=== PATIENT | male | born 1955 | race Caucasian/White ===

== ENCOUNTER 2018-01-06 11:32 | Day surgery (SDC) | payer MEDICARE ==
[~2018-01-06] VITALS: Ht 182.9 cm; Wt 89.0 kg
[~2018-01-06 11:32] MED LIST: DIAZ10 PO; IBUP800 PO; INDO50 PO; MULVITMIND PO; Norco 5-325 Ta1 EACH PO; OXYACE7.5T PO; OXYC10ER PO; OXYC5 PO
[2018-01-06] MEDS ORDERED: CELE400 (12:08)
[2018-01-06] MEDS ORDERED: Neurontin 300300 MG (12:08)
== END 2018-01-06 15:33 | disposition home or self-care (01) ==
LOC: ORSCSDS 11:32
PROVIDERS: Podiatrist Foot & Ankle Surgery
PROC: 0SGP04Z Fusion of Right Toe Phalangeal Joint with Internal Fixation Device, Open Approach (ICD-10-PCS; principal; 2018-01-06 13:00)
PROC: 0SQM0ZZ Repair Right Metatarsal-Phalangeal Joint, Open Approach (ICD-10-PCS; principal; 2018-01-06 13:00)
PROC: 0QSN04Z Reposition Right Metatarsal with Internal Fixation Device, Open Approach (ICD-10-PCS; principal; 2018-01-06 13:00)
DX: M20.41 Other hammer toe(s) (acquired), right foot (principal); M77.41 Metatarsalgia, right foot; J44.9 Chronic obstructive pulmonary disease, unspecified; Z87.891 Personal history of nicotine dependence; Z79.899 Other long term (current) drug therapy
CPT/HCPCS: C1713; J0690; J1100; J2405; J3010

== ENCOUNTER → 2018-09-09 | Outpatient (CLI) | payer MEDICARE ==
[~2018-09-09] MED LIST changes: +CELE200 PO; +CELE400; +Cyclobenzaprine5 MG PO; +Dazidox10 MG; +GABA600 PO; +Neurontin 300300 MG; +OXYC10TA19 PO
== END | disposition home or self-care (01) ==
LOC: LAB SHORT 18:05 → LAB 18:05
DX: Z51.81 Encounter for therapeutic drug level monitoring (principal); M21.932 Unspecified acquired deformity of left forearm; M19.079 Primary osteoarthritis, unspecified ankle and foot; F11.24 Opioid dependence with opioid-induced mood disorder; Z79.899 Other long term (current) drug therapy
CPT/HCPCS: G0480

== ENCOUNTER 2018-09-12 12:58 | Day surgery (SDC) | payer MEDICARE ==
[~2018-09-12] VITALS: Ht 182.9 cm; Wt 83.8 kg
--- NOTE | 2018-09-12 15:51 | NUR ---
09/12/18 1551 Brayden Acosta PT NOTED TO HAVE DRY, CRACKING SKIN ON THE BOTTOM OF HIS LEFT FOOT. NO SIGNS OF INFECTION NOTED.
--- NOTE | 2018-09-12 17:18 | NUR ---
09/12/18 1718 Bere Costello PT EAGER TO GO HOME, NO COMPLAINTS OF PAIN OR NAUSEA, DISCHARGE TEACHING DONE WITH NO QUESTIONS FROM PATIENT. ORSC.DFT HELPS THE PATIENT GET DRESSED.
== END 2018-09-12 17:21 | disposition home or self-care (01) ==
LOC: ORSCSDS 12:58
PROVIDERS: Podiatrist Foot & Ankle Surgery
PROC: 0QSP04Z Reposition Left Metatarsal with Internal Fixation Device, Open Approach (ICD-10-PCS; principal; 2018-09-12 14:45)
PROC: 0SGQ04Z Fusion of Left Toe Phalangeal Joint with Internal Fixation Device, Open Approach (ICD-10-PCS; principal; 2018-09-12 14:45)
DX: M77.42 Metatarsalgia, left foot (principal); M20.42 Other hammer toe(s) (acquired), left foot; Z87.891 Personal history of nicotine dependence; Z79.899 Other long term (current) drug therapy
CPT/HCPCS: C1713; C1769; J0690; J1100; J1885; J2250; J2405; J3010; J7120

== ENCOUNTER 2023-05-09 08:28 | Day surgery (SDC) | payer MEDICARE ==
[~2023-05-09] VITALS: Ht 182.9 cm; Wt 86.3 kg
[2023-05-09] MEDS ORDERED: NORVASC5 MG PO (09:35)
[2023-05-09 11:32] VITALS: BP 114/86
--- NOTE | 2023-05-09 15:38 | NUR ---
05/09/23 1538 Sandro Altamirano IV REMOVED INTACT. SITE WNL. PT MAINTAINED O2 SATURATION >92% IN SDU WITH GOOD PLETH WAVE. PULSE OXTMETRY OCCASSIONALLY SHOWED BREIF DROPS LOW 90%, HOWEVER, THIS ONLY OCCURRED WHEN PLETH WAVE WAS IRREGULA R. PT DENIED SIGNS AND SYMPTOMS OF HYPOXIA--INCLUDING DIZZINESS AND SHORTNESS OF BREATH--AND NONE WERE OBSERVED. PULSE OXYMETRY READING RETURNED TO >92% SPONTANEOUSLY. PT WAS CALM, TALKATIVE, AND JOKING UPON D/C. HE DENIED PAIN AND NAUSEA. HE SAID "I FEEL GREAT" REPEATEDLY AND EXPRESSED READINESS TO GO HOME. PT TAKES OXYCODONE AT HOME. PT WAS GIVEN INCENTIVE SPIROMETER AND INSTRUCTED IN ITS USE. DR. WRIGHT WAS CONSULTED REGARDING DILAUDID PERSCRIPTION AND PRIOR AT HOME OXYCODONE USE. PT WAS TOLD TO TAKE EITHER OXYCODONE OR DILAUDID FOR PAIN, BUT NOT BOTH, PER DR. WRIGHT'S INSTRUCTIONS. PT WAS ALSO TOLD HE COULD REMOVE COMPRESSION SOCKS TODAY, PER DR. WRIGHT'S INSTRUCTIONS. PT HAD LARGE LUMP ON HIS WRIST UPON ARRIVAL IN PACU AND AT TIME OF DISCHARGE. ADMITTING RN, FLORINDA, AND PT ADVISED THAT THE LUMP HAD BEEN PRESENT PRIOR TO ADMISSION AND HAD NOT CHANGED IN APPEARANCE.
== END 2023-05-09 12:44 | disposition home or self-care (01) ==
LOC: ORSCSDS 08:28
PROVIDERS: Orthopaedic Surgery
PROC: 01N40ZZ Release Ulnar Nerve, Open Approach (ICD-10-PCS; principal; 2023-05-09 09:30)
DX: G56.21 Lesion of ulnar nerve, right upper limb (principal); I10 Essential (primary) hypertension; E78.5 Hyperlipidemia, unspecified; E11.9 Type 2 diabetes mellitus without complications; F17.210 Nicotine dependence, cigarettes, uncomplicated; Z79.899 Other long term (current) drug therapy
CPT/HCPCS: 82947; J0690; J1100; J1170; J2250; J2405; J2704; J2795; J3010; J3370; J7120

== ENCOUNTER 2023-10-28 10:38 | Day surgery (SDC) | payer MEDICARE ==
[~2023-10-28] VITALS: Ht 182.9 cm; Wt 86.4 kg
[~2023-10-28 10:38] MED LIST changes: +Lactated Ringer's 1,000 ML IV ONE; +NORVASC5 MG PO
[2023-10-28] MEDS ORDERED: CeFAZolin Sodium 2,000 MG VIAL ONE (10:58)
[2023-10-28] MEDS ORDERED: NS 50 ML IV ONE (10:59)
[2023-10-28] MEDS ORDERED: Lactated Ringer's 1,000 ML IV ONE (11:28)
[2023-10-28] MEDS ORDERED: Lidocaine 2%-Epineph 1:200000 20 ML SDV ONE (11:45)
[2023-10-28] MEDS ORDERED: Midazolam HCl 1MG / ML 2ML Vial ONE ×2 (11:45→12:14)
--- NOTE | 2023-10-28 12:10 | NUR ---
10/28/23 1210 Leeann Mckoy TIME OUT PERFORMED AT 1156 AT BEDSIDE WITH MIGUEL CAMPOS AND DR FULTON PRESENT. PT PLACED ON 4L O2 VIA NC PER DR FULTON. PREOP AXILLARY NERVE BLOCK STARTED AT 1200 AND COMPLETED AT 1206. SPO2 AND BP MONITORED THROUGHOUT PROCEDURE. PATIENT TOLERATED PROCEDURE BLOCK.
[2023-10-28] MEDS ORDERED: propofoL 20 ML IV ONE (12:19)
[2023-10-28 12:49] VITALS: BP 135/85
== END 2023-10-28 13:25 | disposition home or self-care (01) ==
LOC: ORSCSDS 10:38
PROVIDERS: Orthopaedic Surgery
PROC: 0LN80ZZ Release Left Hand Tendon, Open Approach (ICD-10-PCS; principal; 2023-10-28 11:45)
PROC: 01N50ZZ Release Median Nerve, Open Approach (ICD-10-PCS; principal; 2023-10-28 11:45)
DX: G56.02 Carpal tunnel syndrome, left upper limb (principal); M65.342 Trigger finger, left ring finger; E11.9 Type 2 diabetes mellitus without complications; E78.5 Hyperlipidemia, unspecified; E55.9 Vitamin D deficiency, unspecified; I10 Essential (primary) hypertension; Z87.891 Personal history of nicotine dependence; Z79.899 Other long term (current) drug therapy
CPT/HCPCS: 82947; J0690; J2250; J2704; J7120

== ENCOUNTER 2024-01-11 14:14 | Emergency (ER) | payer MEDICARE ==
[~2024-01-11] VITALS: Ht 182.9 cm; Wt 86.2 kg
[~2024-01-11 14:14] MED LIST changes: -Lactated Ringer's 1,000 ML IV ONE
[2024-01-11 14:35] VITALS: BP 128/94
[2024-01-11] MEDS ORDERED: Ketorolac Tromethamine 15mg Vial IM ONE (18:30)
[2024-01-11] MEDS ORDERED: Cephalexin Monohydrate 500 MG Cap PO ONE (18:30)
[2024-01-11] MEDS ORDERED: OxyCODONE HCL 5 MG TAB PO ONE (18:30)
[2024-01-11] MEDS ORDERED: BACTRIM DS TAB1 EAC1 PO (18:50)
[2024-01-11] MEDS ORDERED: CEPH500 PO (18:50)
[2024-01-11] MEDS ORDERED: Trimethoprim/Sulfamethoxazole DS Tab PO ONE (18:50)
== END 2024-01-11 19:05 | disposition home or self-care (01) ==
LOC: ER 14:14
DX: L02.414 Cutaneous abscess of left upper limb (principal); L02.413 Cutaneous abscess of right upper limb; Z88.8 Allergy status to other drugs, medicaments and biological substances; Z79.899 Other long term (current) drug therapy; M10.9 Gout, unspecified; Z87.891 Personal history of nicotine dependence
CPT/HCPCS: 73080; 73630; A9270; J1885

== ENCOUNTER → 2024-06-25 | Outpatient (CLI) | payer MEDICARE ==
[~2024-06-25] MED LIST changes: +BACTRIM DS TAB1 EAC1 PO; +CEPH500 PO
[2024-06-30 10:11] LABS: HSV 1 SUBTYPE BY PCR Not Detected; HSV 2 SUBTYPE BY PCR Not Detected; HSV SUBTYPE SOURCE Not Provided
== END ==
LOC: LAB SHORT 17:32 → LAB 17:32
PROVIDERS: Physician Assistant
DX: T78.1XXA Other adverse food reactions, not elsewhere classified, initial encounter (principal); L03.211 Cellulitis of face
CPT/HCPCS: 87070; 87075; 87077; 87186; 87205; 87529

== ENCOUNTER → 2024-07-29 | Outpatient (CLI) | payer MEDICARE ==
[2024-07-29 15:57] LABS: Stool Occult Bld Immuno 1 Positive (NEGATIVE)
== END | disposition home or self-care (01) ==
LOC: LAB SHORT 14:02 → LAB 14:02
PROVIDERS: Family Medicine
DX: Z12.11 Encounter for screening for malignant neoplasm of colon (principal)
CPT/HCPCS: G0328

== ENCOUNTER 2025-02-06 16:52 | Inpatient (IN) | payer MEDICARE ==
[~2025-02-06] VITALS: Ht 182.9 cm; Wt 97.4 kg
[2025-02-06] MEDS ORDERED: Ipratropium/Albuterol SulF 2.5-0.5MG/3 ML Amp INH ONE (17:00)
[2025-02-06] MEDS ORDERED: NS 500 ML IV SCH ×2 (17:00→17:55)
[2025-02-06 17:28] LABS: pH Blood Venous 7.34 (7.34-7.37)
[2025-02-06] MEDS ORDERED: CefTRIAXone Sodium 1,000 MG in NS 100 ML IV ONE (17:40)
[2025-02-06 17:41] LABS: Hematocrit 34.8 % (37.0-53.0); Hemoglobin 12.7 g/dL (13.5-17.5); Mean Corpuscular HGB Conc 36.5 g/dL (31.5-36.5); Mean Corpuscular Volume 88 fL (80-100); NRBC ABSOLUTE 0.00 K/mm3 (0.00-0.02); NRBC Auto 0.0 /100 WBC (0.0-0.2); Platelet Count 334 K/mm3 (150-400); RDW Coefficient Variation 16.2 % (11.7-14.2); RDW Standard Deviation 52.0 fL (35.1-46.3)
[2025-02-06 17:52] LABS: BAND PERCENT MAN 2 % (0-8); BASOPHILS ABSOLUTE MAN 0.00 K/mm3 (0.00-0.23); BASOPHILS PERCENT MAN 0 % (0-2); EOSINOPHILS ABSOLUTE MAN 0.00 K/mm3 (0.00-0.68); EOSINOPHILS PERCENT MAN 0 % (0-6); LYMPHOCYTES ABSOLUTE MAN 0.48 K/mm3 (0.84-5.20); LYMPHOCYTES PERCENT MAN 1 % (21-46); MONOCYTES ABSOLUTE MAN 0.00 K/mm3 (0.16-1.47); MONOCYTES PERCENT MAN 0 % (4-13); NEUTROPHILS ABSOLUTE MAN 47.86 K/mm3 (1.96-9.15); SEG NEUTROPHILS PERCENT MAN 97 % (41-73)
[2025-02-06 18:13] LABS: Alanine Aminotransfer (ALT/SGP 81.0 U/L (12-78); Albumin, Blood 1.6 g/dL (3.4-5.0); Albumin/Globulin Ratio 0.3 (0.8-1.8); Anion Gap 11.0 mmol/L (3-11); Aspartate Aminotrans (AST/SGOT 116.0 U/L (12-37); Bilirubin, Total 3.0 mg/dL (0.1-1.0); Blood Urea Nitrogen 66.0 mg/dL (8-24); CO2, Blood 22.0 mmol/L (21-32); Calcium, Blood 8.2 mg/dL (8.5-10.1); Chloride, Blood 101.0 mmol/L (98-108); Creatinine, Blood 1.29 mg/dL (0.60-1.20); Globulin, Blood 5.2 g/dL (2.2-4.0); Glucose, Blood 210.0 mg/dL (70-99); Potassium, Blood 4.0 mmol/L (3.5-5.5); Sodium, Blood 130.0 mmol/L (136-145); Total Protein, Blood 6.8 g/dL (6.4-8.2)
[2025-02-06 18:26] LABS: Influenza A, PCR NEGATIVE (NEGATIVE); Influenza B, PCR NEGATIVE (NEGATIVE); Resp Syncytial Virus, PCR NEGATIVE (NEGATIVE); SARS-Cov-2 (COVID-19) PCR, MMC NEGATIVE (NEGATIVE)
[2025-02-06] MEDS ORDERED: Phenylephrine HCl 100 MCG/ML-NS 10MLSYR (1MG/10ML) IV ONE (18:53)
[2025-02-06] MEDS ORDERED: Vancomycin (Pharmacy Consult) IV SCH (19:05)
[2025-02-06] MEDS ORDERED: Ipratropium/Albuterol SulF 2.5-0.5MG/3 ML Amp INH SCH (19:10)
[2025-02-06] MEDS ORDERED: Magnesium Hydroxide Conc 10 ML UDC PO PRN (19:15)
[2025-02-06] MEDS ORDERED: NS 1,000 ML IV SCH ×2 (20:20→21:10)
[2025-02-06] MEDS ORDERED: Lactobacil 2-S.Thermo-Bifido 1 1 Cap PO SCH (21:00)
[2025-02-06] MEDS ORDERED: Insulin Regular 100 UNIT/ML 10ML Vial SC SCH (21:00)
[2025-02-06 21:24] VITALS: BP 101/68
[2025-02-07 00:11] VITALS: BP 95/63
[2025-02-07 03:49] VITALS: BP 114/80
--- NOTE | 2025-02-07 04:28 | NUR ---
SHIFT SUMMARY PT REMAINS A&OX4. SOFT BPs THROUGHOUT NIGHT HOWEVER ON THE UPRISE TOWARDS MORNING. ON TELE PT ST LOW 100s. PT ON 5L VIA NC. PT COUGHING FREQUENTLY WITH LARGE BROWN SPUTUM CAUSING PT TO BE IN QUITE A BIT OF PAIN. MEDICATED PER EMAR WITH 5MG OXYCODONE AND FLEXERIL. PT STILL HAVING PLEURITIC CP, RESIDENT NOTIFIED AND TESSLON PEARLS AND DEXAMETHASONE ORDERED AND GIVEN. PT VERY ANXIOUS IN ROOM, CONSTANT REMINDERS TO KEEP OXYGEN ON AND TO NOT PULL LINES. PT USING URINAL AT BEDSIDE. PT CONTINUES TO HAVE FLUIDS RUNNING WITH IV ABX GIVEN PER EMAR. NO FURTHER QUESTIONS OR CONCERNS AT THIS TIME. WILL CONTINUE WITH PLAN OF CARE.
[2025-02-07 05:21] LABS: Hematocrit 29.3 % (37.0-53.0); Hemoglobin 10.6 g/dL (13.5-17.5); Mean Corpuscular HGB Conc 36.2 g/dL (31.5-36.5); Mean Corpuscular Volume 88 fL (80-100); NRBC ABSOLUTE 0.00 K/mm3 (0.00-0.02); NRBC Auto 0.0 /100 WBC (0.0-0.2); Platelet Count 346 K/mm3 (150-400); RDW Coefficient Variation 16.3 % (11.7-14.2); RDW Standard Deviation 51.8 fL (35.1-46.3)
[2025-02-07 05:45] LABS: BAND PERCENT MAN 5 % (0-8); BASOPHILS ABSOLUTE MAN 0.00 K/mm3 (0.00-0.23); BASOPHILS PERCENT MAN 0 % (0-2); EOSINOPHILS ABSOLUTE MAN 0.00 K/mm3 (0.00-0.68); EOSINOPHILS PERCENT MAN 0 % (0-6); LYMPHOCYTES ABSOLUTE MAN 0.50 K/mm3 (0.84-5.20); LYMPHOCYTES PERCENT MAN 1 % (21-46); METAMYELOCYTE ABSOLUTE MAN 1.00 K/mm3 (0.00-0.00); METAMYELOCYTE PERCENT MAN 2 % (0-0); MONOCYTES ABSOLUTE MAN 2.01 K/mm3 (0.16-1.47); MONOCYTES PERCENT MAN 4 % (4-13); NEUTROPHILS ABSOLUTE MAN 46.76 K/mm3 (1.96-9.15); SEG NEUTROPHILS PERCENT MAN 88 % (41-73)
[2025-02-07 05:46] LABS: Alanine Aminotransfer (ALT/SGP 64.0 U/L (12-78); Albumin, Blood 1.5 g/dL (3.4-5.0); Albumin/Globulin Ratio 0.3 (0.8-1.8); Anion Gap 12.0 mmol/L (3-11); Aspartate Aminotrans (AST/SGOT 76.0 U/L (12-37); Bilirubin, Total 2.3 mg/dL (0.1-1.0); Blood Urea Nitrogen 57.0 mg/dL (8-24); CO2, Blood 20.0 mmol/L (21-32); Calcium, Blood 7.7 mg/dL (8.5-10.1); Chloride, Blood 107.0 mmol/L (98-108); Creatinine, Blood 1.04 mg/dL (0.60-1.20); Globulin, Blood 4.5 g/dL (2.2-4.0); Glucose, Blood 92.0 mg/dL (70-99); Magnesium, Blood 2.2 mg/dL (1.6-2.4); Potassium, Blood 4.3 mmol/L (3.5-5.5); Sodium, Blood 135.0 mmol/L (136-145); Total Protein, Blood 6.0 g/dL (6.4-8.2)
[2025-02-07] MEDS ORDERED: Dextromethorphan Polistirix 30 MG/5 ML 5ML Oral Syringe PO ONE (06:00)
[2025-02-07] MEDS ORDERED: Dextromethorphan Polistirix 30 MG/5 ML 5ML Oral Syringe PO PRN (06:00)
[2025-02-07 07:30] VITALS: BP 111/75
[2025-02-07] MEDS ORDERED: CefTRIAXone Sodium 2,000 MG in NS 100 ML IV SCH (09:00)
[2025-02-07] MEDS ORDERED: Enoxaparin 40 MG/0.4 ML SYR SC SCH (09:00)
[2025-02-07 12:51] VITALS: BP 135/71
--- NOTE | 2025-02-07 13:13 | NUR ---
PT HAD A COUGHING FIT AFTER HIS VISITORS LEFT AND HAD TROUBLE GETTING HIS SPO2 ABOVE 86%. SWITCHED PT TO HIGH FLOW NC AND HAD TO INCREASE OXYGEN FROM 4L UP TO 11L TO GET SPO2 AT 90%. PT THEN SAID HIS NOSE IS REALLY STUFFY, SO SWITCHED HIM TO AN OXYMASK AND IT IS CURRENTLY AT 10L WITH SPO2 91%. PT STATES HIS BREATHING IS MUCH EASIER WITH THE OXYMASK BECAUSE HE CAN BREATHE THROUGH HIS MOUTH. PT'S HR WENT UP TO THE 120/130S DURING THIS AND SWITCHED TO AFIB. WHEN PT WAS COUGHING MORE AND SATS WERE IN THE LWO 80S, HR WOULD HIT 140S. CURRENTLY 120S NOW THAT PT IS RESTING MORE. RT NOTIFIED OF THE INCREASE IN OXYGEN DEMANDS. DR. GUERRERO UPDATED WELL.
[2025-02-07] MEDS ORDERED: Guaifenesin/Dextromethorphan Syrup 5 ML UDC PO PRN (15:00)
[2025-02-07 17:06] VITALS: BP 123/78
--- NOTE | 2025-02-07 17:07 | NUR ---
SHIFT SUMMARY PT'S OXYGEN NEEDS INCREASED EARLY THIS AFTERNOON AND HE HAS BEEN ON 10L OXYMASK SINCE. HIS LUNGS REMAIN VERY COARSE, COUGHING UP MODERATE AMT OF THICK, BROWN SPUTUM. HE HAS REMAINED IN AFIB THIS AFTERNOON WITH RATE IN THE 120S. MAP HAS STAYED ABOVE 65. DIET ADVANCED PER DR. GUERRERO AND PT IS TOLERATING. VOIDING USING THE URINAL.
[2025-02-07] MEDS ORDERED: Metoprolol Tartrate 1 MG/ML 5 ML VIAL IV PRN (17:35)
[2025-02-07 20:00] VITALS: BP 126/72
[2025-02-08] VITALS: BP 112/88
[2025-02-08 03:42] LABS: Hematocrit 29.4 % (37.0-53.0); Hemoglobin 10.4 g/dL (13.5-17.5); Mean Corpuscular HGB Conc 35.4 g/dL (31.5-36.5); Mean Corpuscular Volume 89 fL (80-100); NRBC ABSOLUTE 0.00 K/mm3 (0.00-0.02); NRBC Auto 0.0 /100 WBC (0.0-0.2); Platelet Count 341 K/mm3 (150-400); RDW Coefficient Variation 16.8 % (11.7-14.2); RDW Standard Deviation 54.1 fL (35.1-46.3)
[2025-02-08 03:59] LABS: Alanine Aminotransfer (ALT/SGP 51.0 U/L (12-78); Albumin, Blood 1.3 g/dL (3.4-5.0); Albumin/Globulin Ratio 0.3 (0.8-1.8); Anion Gap 10.0 mmol/L (3-11); Aspartate Aminotrans (AST/SGOT 31.0 U/L (12-37); Bilirubin, Total 0.8 mg/dL (0.1-1.0); Blood Urea Nitrogen 59.0 mg/dL (8-24); CO2, Blood 21.0 mmol/L (21-32); Calcium, Blood 7.8 mg/dL (8.5-10.1); Chloride, Blood 109.0 mmol/L (98-108); Creatinine, Blood 0.96 mg/dL (0.60-1.20); Globulin, Blood 4.5 g/dL (2.2-4.0); Glucose, Blood 243.0 mg/dL (70-99); Potassium, Blood 4.2 mmol/L (3.5-5.5); Sodium, Blood 136.0 mmol/L (136-145); Total Protein, Blood 5.8 g/dL (6.4-8.2)
[2025-02-08 04:00] VITALS: BP 114/79
[2025-02-08 04:02] LABS: BAND PERCENT MAN 5 % (0-8); BASOPHILS ABSOLUTE MAN 0.00 K/mm3 (0.00-0.23); BASOPHILS PERCENT MAN 0 % (0-2); EOSINOPHILS ABSOLUTE MAN 0.00 K/mm3 (0.00-0.68); EOSINOPHILS PERCENT MAN 0 % (0-6); LYMPHOCYTES ABSOLUTE MAN 0.34 K/mm3 (0.84-5.20); LYMPHOCYTES PERCENT MAN 1 % (21-46); MONOCYTES ABSOLUTE MAN 0.34 K/mm3 (0.16-1.47); MONOCYTES PERCENT MAN 1 % (4-13); MYELOCYTE ABSOLUTE MAN 0.69 K/mm3 (0.00-0.00); MYELOCYTE PERCENT MAN 2 % (0-0); NEUTROPHILS ABSOLUTE MAN 33.46 K/mm3 (1.96-9.15); SEG NEUTROPHILS PERCENT MAN 91 % (41-73)
--- NOTE | 2025-02-08 05:38 | NUR ---
SHIFT SUMMARY PT HAS TOLERATED NIGHT WELL WITH NO SIGNIFICANT EVENTS OR CHANGES. PT IS ON OXIMASK AT 15LPM, SATS > 95%. PT TAKES MASK OFF AT SOME POINTS THROUGH NIGHT AND HAS SUSTAINED SATS > 90%, OCCASIONALLY DROPPING INTO THE 80s. PT IS ABLE TO MOVE IN BED INDEPENDENTLY AND USES URINAL ON HIS OWN. LUNG SOUNDS ARE DIM TO COARSE OR CRACKLES ON LEFT SIDE AND COARSE DIM ON RIGHT. PT IS CURRENTLY RESTING COMFORTABLY IN ROOM. CALL LIGHT WITHIN REACH. WILL CONTINUE TO MONITOR UNTIL REPORT PASSED TO DAY SHIFT TEAM.
[2025-02-08] MEDS ORDERED: Insulin Glargine-Yfgn 100 Unit/mL 3 ML SYR SC SCH (07:00)
[2025-02-08 07:14] VITALS: BP 111/82
[2025-02-08 12:53] VITALS: BP 114/72
--- NOTE | 2025-02-08 13:07 | NUR ---
REASSESSMENT PT HAS BEEN RESTING IN BED THROUGHOUT THE MORNING. HE SAYS HE FEELS STRONGER, BUT HE IS STILL REQUIRING 10L/OXYMASK OR 15L/HIGH FLOW NC WHEN HE IS EATING. HE CONTINUES TO COUGH UP BROWN/PINK SPUTUM. HE HAS BEEN USING THE FLUTTER VALVE THROUGHOUT THE MORNING. REMAINS IN AFIB WITH RATE IN THE 1TEENS. VOIDING USING THE URINAL. EATING ALL OF HIS MEALS.
[2025-02-08 16:06] VITALS: BP 106/84
--- NOTE | 2025-02-08 17:12 | NUR ---
SHIFT SUMMARY PT HAS CONTINUED TO REQUIRE 10L/OXYMASK TODAY TO KEEP SATS ABOVE 90%. LS REMAIN VERY COARSE ON THE L SIDE, MOSTLY CLEAR ON THE R. STILL COUGHING UP BROWN/PINK SPUTUM. AFIB WITH RATE IN THE 1TEENS, UP TO 120S WITH ACTIVITY OR COUGHING, MAP ABOVE 65. EATING 100% OF HIS MEALS. VODINIG USING THE URINAL. EDUCATION ON PT'S ILLNESS AND MEDICATIONS GIVEN THROUGHOUT THE DAY.
[2025-02-08 17:38] LABS: HEPATITIS A ANTIBODY, IGM Negative (Negative); HEPATITIS C AB CIA INTERP Negative (Negative); HEPATITIS C ANTIBODY CIA INDEX 0.05 IV
[2025-02-09] VITALS: BP 124/76
[2025-02-09 02:13] LABS: Hematocrit 29.3 % (37.0-53.0); Hemoglobin 10.4 g/dL (13.5-17.5); Mean Corpuscular HGB Conc 35.5 g/dL (31.5-36.5); Mean Corpuscular Volume 90 fL (80-100); NRBC ABSOLUTE 0.00 K/mm3 (0.00-0.02); NRBC Auto 0.0 /100 WBC (0.0-0.2); Platelet Count 356 K/mm3 (150-400); RDW Coefficient Variation 17.2 % (11.7-14.2); RDW Standard Deviation 55.6 fL (35.1-46.3)
[2025-02-09 02:38] LABS: BAND PERCENT MAN 5 % (0-8); BASOPHILS ABSOLUTE MAN 0.00 K/mm3 (0.00-0.23); BASOPHILS PERCENT MAN 0 % (0-2); EOSINOPHILS ABSOLUTE MAN 0.00 K/mm3 (0.00-0.68); EOSINOPHILS PERCENT MAN 0 % (0-6); LYMPHOCYTES ABSOLUTE MAN 1.60 K/mm3 (0.84-5.20); LYMPHOCYTES PERCENT MAN 7 % (21-46); METAMYELOCYTE ABSOLUTE MAN 1.83 K/mm3 (0.00-0.00); METAMYELOCYTE PERCENT MAN 8 % (0-0); MONOCYTES ABSOLUTE MAN 0.91 K/mm3 (0.16-1.47); MONOCYTES PERCENT MAN 4 % (4-13); MYELOCYTE ABSOLUTE MAN 0.91 K/mm3 (0.00-0.00); MYELOCYTE PERCENT MAN 4 % (0-0); NEUTROPHILS ABSOLUTE MAN 17.69 K/mm3 (1.96-9.15); SEG NEUTROPHILS PERCENT MAN 72 % (41-73)
[2025-02-09 02:43] LABS: Alanine Aminotransfer (ALT/SGP 103 U/L (12-78); Albumin, Blood 1.5 g/dL (3.4-5.0); Albumin/Globulin Ratio 0.3 (0.8-1.8); Anion Gap 9 mmol/L (3-11); Aspartate Aminotrans (AST/SGOT 75 U/L (12-37); Bilirubin, Total 0.6 mg/dL (0.1-1.0); Blood Urea Nitrogen 69 mg/dL (8-24); CO2, Blood 22 mmol/L (21-32); Calcium, Blood 7.9 mg/dL (8.5-10.1); Chloride, Blood 111 mmol/L (98-108); Creatinine, Blood 1.07 mg/dL (0.60-1.20); Globulin, Blood 4.3 g/dL (2.2-4.0); Glucose, Blood 203 mg/dL (70-99); Potassium, Blood 4.4 mmol/L (3.5-5.5); Sodium, Blood 138 mmol/L (136-145); Total Protein, Blood 5.8 g/dL (6.4-8.2); Vancomycin, Trough 11.4 ug/mL (5.0-10.0)
[2025-02-09 04:02] VITALS: BP 135/87
[2025-02-09] MEDS ORDERED: Ipratropium/Albuterol SulF 2.5-0.5MG/3 ML Amp INH PRN (04:55)
--- NOTE | 2025-02-09 05:47 | NUR ---
SHIFT SUMMARY PT HAS TOLERATED SHIFT OVERNIGHT WELL WITH NO SIGNIFICANT EVENTS. PT HAS BEEN ABLE TO SLEEP OVERNIGHT OCCASIONALLY WAKING TO COUGH. PT HAS RECIEVED MEDICATIONS PER MAR FOR PAIN AND SOB. PT IS ABLE TO COUGH UP SOME MATERIALS AND SPIT THEM INTO EMESIS BAG. PTS LUNG SOUNDS HAVE IMPROVED FROM THIS NURSES PREVIOUS SHIFT YESTERDAY. PT CURRENTLY ON 10L OXIMASK, SATS > 97%. CALL LIGHT WITHIN REACH. WILL CONTINUE TO MONITOR UNTIL REPORT PASSED TO DAY SHIFT TEAM.
[2025-02-09] MEDS ORDERED: Albuterol 2.5 MG/3 ML VIAL INH PRN (06:30)
[2025-02-09] MEDS ORDERED: Ipratropium/Albuterol SulF 2.5-0.5MG/3 ML Amp INH SCH (06:30)
[2025-02-09 07:15] VITALS: BP 135/102
--- NOTE | 2025-02-09 08:30 | NUR ---
NURSING ICU DAYSHIFT: Assumed care of pt at approx 0700. A/O, very pleasant, cooperative w/care. Denies any pain/discomfort at rest. General weakness noted though can perform most ADL's independently. Skin intact w/no breakdown reported. Cardiac monitoring in place, afib w/HR 100-120, SBP 135 prior to a.m. meds, no c/o CP/pressure, no noted edema. L/S w/crackles t/o (L>R), RR 20-24, O2 sat mid to upper 90's on 10L oxy mask, harsh cough producing small amts of clear/stringy sputum, dyspnea w/minimal exertion. Abd SNT, BT+, voiding w/o difficulty per pt. PIV x2, s/l w/abx as scheduled. Seen by physician team, nurse physician rounding completed, plan of care discussed, new d/o received. EKG completed w/results reported to attending. Pt denies any current needs or questions regarding plan of care. Call light in reach, cont to monitor for any changes.
[2025-02-09] MEDS ORDERED: Polyethylene Glycol 3350 17 gm PO PRN (10:20)
[2025-02-09 11:04] VITALS: BP 136/97
[2025-02-09 17:12] VITALS: BP 147/95
--- NOTE | 2025-02-09 17:15 | NUR ---
NURSING PCU DAYSHIFT SUMMARY: Pt continued to do well t/o shift. Started CPT w/RT which pt states has improved breathing greatly. Continue to encourage use of I/S and FV. Xfer to PCU unit via w/c at approx 1530. Pt oriented to unit and call system. Ecouraged patient to take shower and change clothes which pt refused at this time. Pt asked for L wrist to be wrapped for comfort d/t injury several years ago, aiden bandage applied per pt request. Remains in good spirits, continues to verbalize understanding of plan of care, denies any current questions/needs. Call light in reach, cont to monitor until rpt is given to NOC RN.
[2025-02-09] MEDS ORDERED: Enoxaparin 80 MG/0.8 ML SYR SC SCH (21:00)
[2025-02-09 23:43] VITALS: BP 131/93
[2025-02-10 03:50] VITALS: BP 140/94
[2025-02-10 04:37] LABS: Hematocrit 29.6 % (37.0-53.0); Hemoglobin 10.0 g/dL (13.5-17.5); Mean Corpuscular HGB Conc 33.8 g/dL (31.5-36.5); Mean Corpuscular Volume 91 fL (80-100); NRBC ABSOLUTE 0.00 K/mm3 (0.00-0.02); NRBC Auto 0.0 /100 WBC (0.0-0.2); Platelet Count 380 K/mm3 (150-400); RDW Coefficient Variation 17.5 % (11.7-14.2); RDW Standard Deviation 58.4 fL (35.1-46.3)
[2025-02-10 04:55] LABS: BAND PERCENT MAN 7 % (0-8); BASOPHILS ABSOLUTE MAN 0.00 K/mm3 (0.00-0.23); BASOPHILS PERCENT MAN 0 % (0-2); EOSINOPHILS ABSOLUTE MAN 0.00 K/mm3 (0.00-0.68); EOSINOPHILS PERCENT MAN 0 % (0-6); LYMPHOCYTES ABSOLUTE MAN 1.58 K/mm3 (0.84-5.20); LYMPHOCYTES PERCENT MAN 8 % (21-46); METAMYELOCYTE ABSOLUTE MAN 1.18 K/mm3 (0.00-0.00); METAMYELOCYTE PERCENT MAN 6 % (0-0); MONOCYTES ABSOLUTE MAN 0.79 K/mm3 (0.16-1.47); MONOCYTES PERCENT MAN 4 % (4-13); MYELOCYTE ABSOLUTE MAN 0.19 K/mm3 (0.00-0.00); MYELOCYTE PERCENT MAN 1 % (0-0); NEUTROPHILS ABSOLUTE MAN 16.05 K/mm3 (1.96-9.15); SEG NEUTROPHILS PERCENT MAN 74 % (41-73)
[2025-02-10 05:00] LABS: Alanine Aminotransfer (ALT/SGP 167.0 U/L (12-78); Albumin, Blood 1.6 g/dL (3.4-5.0); Albumin/Globulin Ratio 0.4 (0.8-1.8); Anion Gap 9.0 mmol/L (3-11); Aspartate Aminotrans (AST/SGOT 66.0 U/L (12-37); Bilirubin, Total 0.7 mg/dL (0.1-1.0); Blood Urea Nitrogen 50.0 mg/dL (8-24); CO2, Blood 25.0 mmol/L (21-32); Calcium, Blood 7.8 mg/dL (8.5-10.1); Chloride, Blood 110.0 mmol/L (98-108); Creatinine, Blood 0.82 mg/dL (0.60-1.20); Globulin, Blood 4.4 g/dL (2.2-4.0); Glucose, Blood 155.0 mg/dL (70-99); Potassium, Blood 4.4 mmol/L (3.5-5.5); Sodium, Blood 140.0 mmol/L (136-145); Total Protein, Blood 6.0 g/dL (6.4-8.2)
--- NOTE | 2025-02-10 05:22 | NUR ---
SHIFT SUMMARY PT ALERT AND ORIENTED X 4. PT ON 8-12L VIA OXYMIZER MASK. PT HAD COUGHING EPISODE PRODUCED MUCOUSY SPUTUM. BREATHING TREATMENT AND ROBITUSSIN GIVEN WITH SOB IMPROVED. PT IN AFIB WITH HR 100S-110S AND UP TO 120S WITH ACTIVITY. PT DENIES CP/PRESSURE. BP STABLE. PT WITH CRACKLES T/O LUNGS. PT DENIES PAIN. PT PERFOMRED IS AND FLUTTER VALVE. PT WITH ADEQUATE URINE OUTPUT. PT ABLE TO MAKE NEEDS KNOWN.
[2025-02-10 08:18] VITALS: BP 139/76
[2025-02-10] MEDS ORDERED: NS 250 ML IV PRN (08:50)
[2025-02-10 11:50] VITALS: BP 147/105
[2025-02-10] MEDS ORDERED: Insulin Human Lispro 100 Units/ML 3ML Syringe SC SCH (16:30)
[2025-02-10 17:27] VITALS: BP 134/83
--- NOTE | 2025-02-10 18:08 | NUR ---
End of shift note. Pt reports that he is very fatigued today but does report that his breathing seems to be better today. Pt has tolerated oxymask 7L which has been keeping sats >92%. HR remains in the low 100s, new orders given to start today. Pt is able to make needs known. Call light is within reach.
[2025-02-10 20:05] VITALS: BP 121/73
[2025-02-10 23:06] VITALS: BP 138/79
[2025-02-11 03:27] VITALS: BP 144/95
[2025-02-11 04:02] LABS: Hematocrit 28.9 % (37.0-53.0); Hemoglobin 9.8 g/dL (13.5-17.5); Mean Corpuscular HGB Conc 33.9 g/dL (31.5-36.5); Mean Corpuscular Volume 90 fL (80-100); NRBC ABSOLUTE 0.00 K/mm3 (0.00-0.02); NRBC Auto 0.0 /100 WBC (0.0-0.2); Platelet Count 423 K/mm3 (150-400); RDW Coefficient Variation 16.9 % (11.7-14.2); RDW Standard Deviation 56.0 fL (35.1-46.3)
[2025-02-11 04:29] LABS: Alanine Aminotransfer (ALT/SGP 140.0 U/L (12-78); Albumin, Blood 1.6 g/dL (3.4-5.0); Albumin/Globulin Ratio 0.4 (0.8-1.8); Anion Gap 7.0 mmol/L (3-11); Aspartate Aminotrans (AST/SGOT 41.0 U/L (12-37); Bilirubin, Total 0.6 mg/dL (0.1-1.0); Blood Urea Nitrogen 37.0 mg/dL (8-24); CO2, Blood 26.0 mmol/L (21-32); Calcium, Blood 7.5 mg/dL (8.5-10.1); Chloride, Blood 109.0 mmol/L (98-108); Creatinine, Blood 0.7 mg/dL (0.60-1.20); Globulin, Blood 3.9 g/dL (2.2-4.0); Glucose, Blood 122.0 mg/dL (70-99); Potassium, Blood 3.9 mmol/L (3.5-5.5); Sodium, Blood 138.0 mmol/L (136-145); Total Protein, Blood 5.5 g/dL (6.4-8.2)
[2025-02-11 04:53] LABS: BAND PERCENT MAN 4 % (0-8); BASOPHILS ABSOLUTE MAN 0.00 K/mm3 (0.00-0.23); BASOPHILS PERCENT MAN 0 % (0-2); EOSINOPHILS ABSOLUTE MAN 0.00 K/mm3 (0.00-0.68); EOSINOPHILS PERCENT MAN 0 % (0-6); LYMPHOCYTES ABSOLUTE MAN 0.64 K/mm3 (0.84-5.20); LYMPHOCYTES PERCENT MAN 3 % (21-46); METAMYELOCYTE ABSOLUTE MAN 1.07 K/mm3 (0.00-0.00); METAMYELOCYTE PERCENT MAN 5 % (0-0); MONOCYTES ABSOLUTE MAN 0.64 K/mm3 (0.16-1.47); MONOCYTES PERCENT MAN 3 % (4-13); MYELOCYTE ABSOLUTE MAN 0.86 K/mm3 (0.00-0.00); MYELOCYTE PERCENT MAN 4 % (0-0); NEUTROPHILS ABSOLUTE MAN 18.34 K/mm3 (1.96-9.15); SEG NEUTROPHILS PERCENT MAN 81 % (41-73)
--- NOTE | 2025-02-11 05:23 | NUR ---
SHIFT SUMMARY PT ALERT AND ORIENTED X 4. PT WITH CRACKLES T/O WITH L>R. PT WITH COUGHING FIT WHEN LAYING DOWN FLAT. PRN ROBITUSSIN AND BREATHING TREATMENT GIVEN. INCREASED OXYGEN TO 15L FOR SOB AND DESATS TO 85%. PT'S BREATHING IMPROVED AFTER SLEEPING WITH HOB ELEVATED. PT CURRENTLY ON 7L VIA OXYMIZER MASK. PT IN AFIB WITH HR 90S-100S. SHOWINNG IMPROVEMENT AFTER STARTING PO METROPROLOL. PT DENIES CP/PRESSURE. OXYCODONE GIVEN X 1 FOR GENERALIZED PAIN. ADEQUATE URINE OUTPUT. CALL GARRIDO WITHIN REACH AND PT ABLE TO MAKE NEEDS KNOWN.
[2025-02-11 07:28] VITALS: BP 141/88
[2025-02-11] MEDS ORDERED: Insulin Human Lispro 100 Units/ML 3ML Syringe SC SCH (07:30)
[2025-02-11 11:35] VITALS: BP 142/92
--- NOTE | 2025-02-11 13:25 | NUR ---
UPDATE PT REQUIRED 15L OXYMIZER WHILE TALKING WITH RESIDENT MD'S THIS MORNING, WAS ABLE TO TITRATE PT TO 8L OXYMIZER FOR BRIEF PERIOD. PT SEEN BY HOPSITALIST AND REQUIRING 13L OXYMIZER. INSTRUCTED THIS RN TO ATTEMPT TO TITRATE DOWJN TOLERATED AND TO NOTIFY THE MD IF PT O2 DEMANDS INCREASE. AROUND 1200, PT ABLE TO BE TITRATED TO 10LOXYMIZER. ROUGHLY 1300, PT REQUESTED TO AMBULATE TO RESTROOM. PT REPORTED SOB DURING AMBULATION AND OXYMIZER TURNED UP TO 13L AGAIN. RESPIRATORY THERAPIST TO PT ROOM ATY ROUGHLY 1315 AND PLACED PT ON AIRVO 50L 80%. FIO2 TITRATED TO 70% AFTER PT SATS REACHED HIGH 90'S. MD NOTIFIED OF INCREASED O2 DEMANDS.
[2025-02-11 15:57] VITALS: BP 125/89
--- NOTE | 2025-02-11 16:43 | NUR ---
Pt states that his pain is much better now, and he is tolerating the airVo humidified hi flow oxygen.
--- NOTE | 2025-02-11 17:40 | NUR ---
SHIFT SUMMARY PT A/OX4 AND COOPERATIVE OF CARE. PT ABLE TO EXPRESS NEEDS AND CALLS APPROPIATE. PT INDEPENDENT IN BED AND 1 PER ASSIST WHEN UP IN ROOM FOR INCREASED O2 DEMANDS. PT WAS ON 7L OXYMIZER THIS MORNING AND WAS TRANSFERING TO 10L HFNC WHEN EATING. PT O2 DEMANDS INCREASED THROUGHOUT DAY, PT CURRENTLY ON AIRVO 50L 70%. PT REPORTS FEELING BETTER AFTER SWITCHING TO AIRVO. PT REMAINED AFIB WITH CONTROLED RATE. OTHER VSS THROUGHOUT SHIFT. NO REPORT OF CHEST PAIN/PRESSURE. SOB REPORTED WITH AMBULATION THAT LEAD TO SWITCHING TO AIRVO. PT WORKED MINIMALLY WITH PHYSICAL THERAPY, SEE THERAPIST NOTES. PT USING INCENTIVE SPIROMETER AND FLUTTER FALVE DURING SHIFT, PT ENCOURAGED TO INCREASE USE.
[2025-02-11 19:59] VITALS: BP 107/80
[2025-02-11 23:33] VITALS: BP 122/71
[2025-02-12 03:45] VITALS: BP 134/90
--- NOTE | 2025-02-12 04:24 | NUR ---
SHIFT SUMMARY PT A&OX4, ABLE TO MAKE NEEDS KNOWN. SP02>90% ON AIRVO 50L TITRATED TO 60% FI02. THIS AM, PT C/O HE COULDNT BREATHE WITH AIRVO AND WANTED OFF. TRIALED ON OXYMASK 15L. SATS MID TO HIGH 80'S. PT COUGHED UP BROWN SPUTUM. REPLACED BACK ON AIRVO. TELEMETRY SHOWS AFIB, HR 90'S-110'S. C/O OF WRIST PAIN, MEDICATED FOR PAIN AND RLS PER EMAR. USED URINAL TO VOID, NO BM THIS SHIFT. REPOSITIONED SELF IN BED. CURRENTLY IN ROOM WATCHING TV, CALL LIGHT IN REACH.
[2025-02-12 04:47] LABS: Hematocrit 27.1 % (37.0-53.0); Hemoglobin 9.2 g/dL (13.5-17.5); Mean Corpuscular HGB Conc 33.9 g/dL (31.5-36.5); Mean Corpuscular Volume 92 fL (80-100); NRBC ABSOLUTE 0.00 K/mm3 (0.00-0.02); NRBC Auto 0.0 /100 WBC (0.0-0.2); Platelet Count 485 K/mm3 (150-400); RDW Coefficient Variation 16.8 % (11.7-14.2); RDW Standard Deviation 56.3 fL (35.1-46.3)
[2025-02-12 05:04] LABS: Alanine Aminotransfer (ALT/SGP 97.0 U/L (12-78); Albumin, Blood 1.5 g/dL (3.4-5.0); Albumin/Globulin Ratio 0.4 (0.8-1.8); Anion Gap 8.0 mmol/L (3-11); Aspartate Aminotrans (AST/SGOT 25.0 U/L (12-37); Bilirubin, Total 0.5 mg/dL (0.1-1.0); Blood Urea Nitrogen 39.0 mg/dL (8-24); CO2, Blood 26.0 mmol/L (21-32); Calcium, Blood 7.4 mg/dL (8.5-10.1); Chloride, Blood 108.0 mmol/L (98-108); Creatinine, Blood 0.64 mg/dL (0.60-1.20); Globulin, Blood 3.7 g/dL (2.2-4.0); Glucose, Blood 91.0 mg/dL (70-99); Potassium, Blood 4.0 mmol/L (3.5-5.5); Sodium, Blood 138.0 mmol/L (136-145); Total Protein, Blood 5.2 g/dL (6.4-8.2)
[2025-02-12 05:14] LABS: BAND PERCENT MAN 5 % (0-8); BASOPHILS ABSOLUTE MAN 0.00 K/mm3 (0.00-0.23); BASOPHILS PERCENT MAN 0 % (0-2); EOSINOPHILS ABSOLUTE MAN 0.00 K/mm3 (0.00-0.68); EOSINOPHILS PERCENT MAN 0 % (0-6); LYMPHOCYTES ABSOLUTE MAN 1.42 K/mm3 (0.84-5.20); LYMPHOCYTES PERCENT MAN 6 % (21-46); MONOCYTES ABSOLUTE MAN 0.71 K/mm3 (0.16-1.47); MONOCYTES PERCENT MAN 3 % (4-13); MYELOCYTE ABSOLUTE MAN 0.71 K/mm3 (0.00-0.00); MYELOCYTE PERCENT MAN 3 % (0-0); NEUTROPHILS ABSOLUTE MAN 20.90 K/mm3 (1.96-9.15); SEG NEUTROPHILS PERCENT MAN 83 % (41-73)
[2025-02-12 07:33] VITALS: BP 123/89
[2025-02-12 07:46] LABS: HIV 1,2 COMBO ANTIGEN/ANTIBODY Negative (Negative)
[2025-02-12 09:41] LABS: pH Blood Venous 7.50 (7.34-7.37)
[2025-02-12 11:21] VITALS: BP 118/95
[2025-02-12] MEDS ORDERED: Insulin Human Lispro 100 Units/ML 3ML Syringe SC SCH (11:30)
[2025-02-12] MEDS ORDERED: Ipratropium/Albuterol SulF 2.5-0.5MG/3 ML Amp INH SCH (16:05)
[2025-02-12] MEDS ORDERED: Albuterol 2.5 MG/3 ML VIAL INH PRN (16:05)
[2025-02-12 16:35] VITALS: BP 125/83
--- NOTE | 2025-02-12 17:38 | NUR ---
SHIFT SUMMARY PT A/OX4 AND COOPERATIVE OF CARE. PT ABLE TO EXPRESS NEEDS AND CALLS APPROPIATE. PT O2 DEMANDS LABILE FIRST HALF OF THIS SHIFT WITH NEEDING TO MAX OUT AIRVO FOR BRIEF PERIOD. PT O2 DEMANDS IMPROVING SECOND HALF OF SHIFT, ABLE TO TITRATE AIRVO TO 45L 45% SATS IN THE 90'S. PT REPORTED SOB AT TIMES WHEN AMBULATING FROM BED TO CHAIR OR COMMODE. HR REMAINED AFIB WITH CONTROLED RATES 90-100'S. NO REPORT OF CHEST PAIN/PRESSURE. OTHER VSS. NATURAL RESOURCES TECHNICIAN CONSULTED AND SEEN BY PT THIS SHIFT, SEE PULM NOTES. PT WITH MORE PRODUCTIVE COUGH THIS SHIFT AFTER RECIEVING CPT FROM RESPIRATORY THERAPIST.
[2025-02-12] MEDS ORDERED: DEXTROMETHORPHAN/BENZOCAINE 1 EACH LOZENGE MT PRN (18:45)
[2025-02-12 19:43] VITALS: BP 130/74
[2025-02-12 23:36] VITALS: BP 119/91
[2025-02-13 04:04] LABS: Hematocrit 24.1 % (37.0-53.0); Hemoglobin 8.3 g/dL (13.5-17.5); Mean Corpuscular HGB Conc 34.4 g/dL (31.5-36.5); Mean Corpuscular Volume 93 fL (80-100); NRBC ABSOLUTE 0.00 K/mm3 (0.00-0.02); NRBC Auto 0.0 /100 WBC (0.0-0.2); Platelet Count 511 K/mm3 (150-400); RDW Coefficient Variation 16.7 % (11.7-14.2); RDW Standard Deviation 55.5 fL (35.1-46.3)
[2025-02-13 04:05] VITALS: BP 126/91
[2025-02-13 04:27] LABS: Alanine Aminotransfer (ALT/SGP 97.0 U/L (12-78); Albumin, Blood 1.5 g/dL (3.4-5.0); Albumin/Globulin Ratio 0.4 (0.8-1.8); Anion Gap 8.0 mmol/L (3-11); Aspartate Aminotrans (AST/SGOT 35.0 U/L (12-37); Bilirubin, Total 0.4 mg/dL (0.1-1.0); Blood Urea Nitrogen 42.0 mg/dL (8-24); CO2, Blood 27.0 mmol/L (21-32); Calcium, Blood 7.0 mg/dL (8.5-10.1); Chloride, Blood 109.0 mmol/L (98-108); Creatinine, Blood 0.63 mg/dL (0.60-1.20); Globulin, Blood 3.5 g/dL (2.2-4.0); Glucose, Blood 117.0 mg/dL (70-99); Potassium, Blood 3.5 mmol/L (3.5-5.5); Sodium, Blood 140.0 mmol/L (136-145); Total Protein, Blood 5.0 g/dL (6.4-8.2)
[2025-02-13 04:33] LABS: BAND PERCENT MAN 8 % (0-8); BASOPHILS ABSOLUTE MAN 0.23 K/mm3 (0.00-0.23); BASOPHILS PERCENT MAN 1 % (0-2); EOSINOPHILS ABSOLUTE MAN 0.00 K/mm3 (0.00-0.68); EOSINOPHILS PERCENT MAN 0 % (0-6); LYMPHOCYTES ABSOLUTE MAN 1.63 K/mm3 (0.84-5.20); LYMPHOCYTES PERCENT MAN 7 % (21-46); METAMYELOCYTE ABSOLUTE MAN 0.46 K/mm3 (0.00-0.00); METAMYELOCYTE PERCENT MAN 2 % (0-0); MONOCYTES ABSOLUTE MAN 0.46 K/mm3 (0.16-1.47); MONOCYTES PERCENT MAN 2 % (4-13); MYELOCYTE ABSOLUTE MAN 0.23 K/mm3 (0.00-0.00); MYELOCYTE PERCENT MAN 1 % (0-0); NEUTROPHILS ABSOLUTE MAN 20.26 K/mm3 (1.96-9.15); SEG NEUTROPHILS PERCENT MAN 79 % (41-73)
--- NOTE | 2025-02-13 05:17 | NUR ---
END OF SHIFT REPORT PT IN AFIB OVERNIGHT WITH HEART RATE IN 90-110'S. PT GIVEN FLEXERIL AT HS FOR RESTLESS LEGS AND OXY PRN FOR GENERALIZED BONE PAIN. SATS MAINTAINED W CURRENT RT SETTINGS OF 45L AND 455 fio2 on high flow nc. CEPACOL PRN ADMINISTERED FOR THROAT DISCOMFORT. PT HAD SNACK, WATCHED TV AND VISITED W STAFF. IN AM, PT HAD C/O NECK PAIN. WARM PACK MACHINE BROUGHT AND PRN OXYCODONE GIVEN. AM LABS DRAWN AND PLAN FOR PULMONARY TO SEE PT TODAY. PT AT START OF SHIFT USED IS TO 1750, LATER IN SHIFT 1000. PT BRINGING UP THICK [place] SPUTUM AND ENCOURAGED TO CONTINUE IS AND FLUTTER.
[2025-02-13 08:40] VITALS: BP 109/72
[2025-02-13 11:27] VITALS: BP 111/68
[2025-02-13 15:48] VITALS: BP 109/77
[2025-02-13 16:13] LABS: Hematocrit 26.5 % (37.0-53.0); Hemoglobin 8.7 g/dL (13.5-17.5)
[2025-02-13] MEDS ORDERED: Pantoprazole Sodium 40 MG Injection IV SCH (16:30)
--- NOTE | 2025-02-13 17:30 | NUR ---
SHIFT SUMMARY PT A&Ox4, CALLS AND COMMUNICATES NEEDS APPROPRIATELY. BP STABLE, AFIB 100's, UP TO 120's WHEN DESATURATING. DENIES CP/PRESSURE. THROUGHOUT SHIFT, TITRATED O2 FROM 40L 45% FiO2 VIA AIRVO TO 4-6L VIA NC. REPORTS INTERMEDIATE SOB. VERY PRODUCTIVE COUGH. C/O SORE NECK THAT STARTED PREVIOUS SHIFT AND CHRONIC PAIN, MANAGED PER EMAR. 1 ASSIST TO CHAIR/BSC, CONTINENT OF URINE AND BOWEL. PT WITH BLACK STOOL, PHYSICIAN NOTIFIED, SAMPLE SENT. NO OTHER EVENTS, WILL REPORT TO ONCOMING RN.
[2025-02-13 20:41] VITALS: BP 108/79
[2025-02-13 22:21] LABS: Hematocrit 23.5 % (37.0-53.0); Hemoglobin 8.0 g/dL (13.5-17.5)
[2025-02-14] VITALS (18 sets, daily range): BP systolic 87–127; BP diastolic 60–92
[2025-02-14 04:15] LABS: Hematocrit 23.2 % (37.0-53.0); Hemoglobin 7.8 g/dL (13.5-17.5)
[2025-02-14 04:53] LABS: Alanine Aminotransfer (ALT/SGP 91.0 U/L (12-78); Albumin, Blood 1.6 g/dL (3.4-5.0); Albumin/Globulin Ratio 0.4 (0.8-1.8); Anion Gap 9.0 mmol/L (3-11); Aspartate Aminotrans (AST/SGOT 29.0 U/L (12-37); Bilirubin, Total 0.4 mg/dL (0.1-1.0); Blood Urea Nitrogen 35.0 mg/dL (8-24); CO2, Blood 26.0 mmol/L (21-32); Calcium, Blood 7.1 mg/dL (8.5-10.1); Chloride, Blood 108.0 mmol/L (98-108); Creatinine, Blood 0.61 mg/dL (0.60-1.20); Globulin, Blood 3.6 g/dL (2.2-4.0); Glucose, Blood 176.0 mg/dL (70-99); Potassium, Blood 3.4 mmol/L (3.5-5.5); Sodium, Blood 140.0 mmol/L (136-145); Total Protein, Blood 5.2 g/dL (6.4-8.2)
--- NOTE | 2025-02-14 05:16 | NUR ---
END OF SHIFT REPORT PT VISITED W PARENTS AT START OF SHIFT. DIET CHANGED FROM NPO TO CLEARS. PT HAD JELLO AND CHICKEN BROTH AND CLEAR ENSURES. BLOOD SUGARS TAKEN Q 6 HOURS. NO BM THIS SHIFT. HGB/HCT DRAWN Q 6 HOURS. AM LEVEL OF 7.8/23.[address] LIAO. PT ON BID PPI W IV PROTONIX. PT GIVEN PRN OXYCODONE AND FLEXERIL TIMES ONE EACH OVERNIGHT FOR BONE PAIN AND RESTLESS LEGS. PT IN AFIB CONTROLLED TO RVR WITH HEART RATE IN 80-110'S. RT TITRATING DOWN AND UP PT O2 REQ. PT STARTED ON 4 LITERS BUBLED NC AND UP TO 6 LITERS BEFORE HS. WHILE PT SLEEPING, PT REQUIRED OXIMYZER MASK FOR DESATTING W SNORING AND RESPIRATORY PERIODS OF IRREGULAR RESPIRATIONS. PT RETURNED TO 7 LITERS NASAL CANULA TO HAVE JELLO AND RETURNING BACK TO SLEEP.
[2025-02-14 07:51] LABS: Stool Occult Blood Guaiac 1 Pos (Neg)
[2025-02-14 08:38] LABS: Ferritin, Serum 399.0 ng/mL (26-388); Total Iron Binding Capacity 258.0 ug/dL (250-450)
[2025-02-14] MEDS ORDERED: Insulin Glargine-Yfgn 100 Unit/mL 3 ML SYR SC ONE (09:25)
--- NOTE | 2025-02-14 09:30 | NUR ---
AM NOTE: PATIENT ALERT AND ORIENTED. COMPLAINS OF PAIN TO RIGHT SHOULDER, LEFT WRIST AND RIGHT FOOT. MEDICATED PER EMAR. ABLE TO HELP WITH TURNS/REPOSITIONING IN BED. UP WITH 1 PERSON ASSIST TO HELP MANAGE CORDS AND TUBING. UP TO CHAIR PATIENT TOLERATES. ON 6L HIGH FLOW NASAL CANNULA OR 6L OXYMASK PATIENT TENDS TO MOUTH BREATH WHEN SLEEPING. PATIENT STATES HE CAN BREATHE EASIER TODAY. RIGHT SIDE OF LUNGS SOUNDING CLEAR WITH LEFT UPPER AND LOWER LOBE CRACKLES. DR. KAM TO BEDSIDE THIS AM. PATIENT CONTINUES TO HAVE COUGH WITH PRODUCTIVE SPUTUM. TELE SHOWING AFIB WITH HR 90'S. DENIES CHEST PAIN/PRESSURE/PALPIATIONS. PPP. IV ABX INFUSED. NO EDEMA NOTED. BOWEL TONES PRESENT. ATTENDS IN PLACE. NO BOWEL MOVEMENT SINCE YESTERDAY. DENIES ABDOMINAL PAIN/NAUSEA. DR. ROBERTS TO BEDSIDE THIS AM AND PLAN FOR SCOPE. PATIENT OKAY TO DRINK WATER UNTIL 1030AM. SKIN PALE WITH SCATTERED BRUISING. DR. KIRAN AND DR. JALLOH TO BEDSIDE THIS AM. ORDERS TO REDUCE MORNING GLARGINE TO 5 UNITS FOR TODAY SINCE PATIENT IS NPO. PLAN TO RECHECK H&H THIS AFTERNOON. CALL LIGHT IN REACH. DENIES NEEDS AT THIS TIME. PATIENT DENIED THIS RN'S OFFER TO CALL AND UPDATE ANY FAMILY AT THIS TIME.
[2025-02-14] MEDS ORDERED: Vancomycin (Pharmacy Consult) IV SCH ×2 (11:50→11:55)
[2025-02-14 12:13] LABS: Hematocrit 20.3 % (37.0-53.0); Hemoglobin 6.7 g/dL (13.5-17.5)
[2025-02-14] MEDS ORDERED: FentaNYL Citrate 50 MCG/ML 2 ML Injection IV ONE (13:05)
[2025-02-14 13:19] LABS: Anion Gap 7.0 mmol/L (3-11); Blood Urea Nitrogen 29.0 mg/dL (8-24); CO2, Blood 29.0 mmol/L (21-32); Calcium, Blood 7.2 mg/dL (8.5-10.1); Chloride, Blood 108.0 mmol/L (98-108); Creatinine, Blood 0.67 mg/dL (0.60-1.20); Glucose, Blood 98.0 mg/dL (70-99); Potassium, Blood 3.6 mmol/L (3.5-5.5); Sodium, Blood 140.0 mmol/L (136-145)
--- NOTE | 2025-02-14 14:47 | NUR ---
FIRST UNIT OF BLOOD STARTED AND PATIENT TO DAY SURGERY FOR SCOPE AT 1436. APPLIANCE ASSEMBLER NOTIFIED.
[2025-02-14] MEDS ORDERED: Lidocaine HCl 2% 10 ML SDA ONE (15:05)
--- NOTE | 2025-02-14 15:18 | NUR ---
02/14/25 1518 Sandra Bell, SOFTWARE SUPPORT ANALYST; SEE ANESTHESIA RECORDS.
[2025-02-14] MEDS ORDERED: Furosemide 10 MG / ML 2ML Vial IV SCH (15:35)
--- NOTE | 2025-02-14 16:58 | NUR ---
PATIENT BACK FROM DAY SURGERY. FIRST UNIT OF BLOOD COMPLETED UPON ARRIVAL FROM DAY SURGERY. 20 MG IV LASIX GIVEN AFTER FIRST UNIT WAS COMPLETED. SECOND UNIT STARTED. POST SURGERY VITALS IN PROGRESS. PATIENT STATES "I FEEL SO MUCH BETTER". LUNG SOUNDS CONTINUE TO SOUND CLEAR ON RIGHT SIDE AND CRACKLES THROUGOUT LEFT. CONS CARB DIET IN PLACE AND PATIENT TOLERATING PO DIET AT THIS TIME. BLOOD SUGARS ACHS. VISITING WITH FAMILY AT BEDSIDE. AFIB WITH HR 80-100'S. CALL LIGHT IN REACH. DENIES NEEDS AT THIS TIME.
[2025-02-14 20:55] LABS: Hematocrit 26.2 % (37.0-53.0); Hemoglobin 8.8 g/dL (13.5-17.5)
[2025-02-15] VITALS (7 sets, daily range): BP systolic 96–121; BP diastolic 50–88
[2025-02-15 04:30] LABS: Hematocrit 24.9 % (37.0-53.0); Hemoglobin 8.4 g/dL (13.5-17.5)
[2025-02-15 04:50] LABS: Alanine Aminotransfer (ALT/SGP 88.0 U/L (12-78); Albumin, Blood 1.6 g/dL (3.4-5.0); Albumin/Globulin Ratio 0.5 (0.8-1.8); Anion Gap 7.0 mmol/L (3-11); Aspartate Aminotrans (AST/SGOT 35.0 U/L (12-37); Bilirubin, Total 0.4 mg/dL (0.1-1.0); Blood Urea Nitrogen 28.0 mg/dL (8-24); CO2, Blood 28.0 mmol/L (21-32); Calcium, Blood 7.1 mg/dL (8.5-10.1); Chloride, Blood 109.0 mmol/L (98-108); Creatinine, Blood 0.71 mg/dL (0.60-1.20); Globulin, Blood 3.4 g/dL (2.2-4.0); Glucose, Blood 104.0 mg/dL (70-99); Potassium, Blood 4.1 mmol/L (3.5-5.5); Sodium, Blood 140.0 mmol/L (136-145); Total Protein, Blood 5.0 g/dL (6.4-8.2)
--- NOTE | 2025-02-15 05:29 | NUR ---
SHIFT SUMMARY AOX4. REPORTS 9/10 PAIN TO R FOOT & L WRIST FROM OLD INJURIES. MEDICATED W/5MG OXYCODONE & FLEXERIL FOR PAIN, PT ABLE TO REST COMFORTABLY W/EYES CLOSED. AFTER RECIEVING BLOOD AT SHIFT CHANGE PT REPORTS FEELING "MUCH BETTER". BP STABLE. TELE AFIB W/HR 112. AFEBRILE. SPO2 >90% ON 6L O2 VIA HFNC. PT DESAT IN MIDDLE OF NIGHT WHILE SLEEPING & MOUTH BREATHING, PLACED ON 8L VIA OXIMASK & PT HAS MAINTAINED SPO2 SINCE. BS DIM W/COARSE CRACKLES ON L SIDE LUNGS. E/U RESP. DENIES DYSPNEA. CALL LIGHT IN REACH & PT ABLE TO MAKE NEEDS KNOWN.
[2025-02-15] MEDS ORDERED: Insulin Glargine-Yfgn 100 Unit/mL 3 ML SYR SC SCH (09:00)
[2025-02-15] MEDS ORDERED: Furosemide 10 MG / ML 2ML Vial IV SCH (09:00)
--- NOTE | 2025-02-15 10:06 | NUR ---
AM NOTE: PATIENT ALERT AND ORIENTED. ABLE TO TURN SELF IN BED. PHYSICAL THERAPY ORDERS IN PLACE. OVERALL WEAK WITH SOME LIMITED RANGE OF MOTION IN RIGHT FOOT AND RIGHT SHOULDER DUE TO OLD INJURIES. ON 6L HIGH FLOW NASAL CANNULA SATING 92-94%. LEFT LUNG SOUNDS WITH CRACKLES. PRODUCTIVE COUGH. USING FLUTTER VALVE TELE SHOWING AFIB WITH HR 80-100'S. IV ABX INFUSED. NO EDEMA NOTED. DENIES CHEST PAIN/PRESSURE/PALPITATIONS. BOWEL TONES PRESENT. DENIES ABDOMINAL PAIN/NAUSEA. TOLERATING PO DIET. USING URINAL TO VOID. ATTENDS IN PLACE. DR. HONG AND DR. KIRAN TO BEDSIDE THIS AM. PLANS FOR H&H AT 1200. BLOOD SUGAR READINGS INCONSISTENT ON FINGERS. BLOOD DRAWN FROM POWERGLIDE FOR CBG CHECKS. CALL LIGHT IN REACH. DENIES NEEDS AT THIS TIME.
[2025-02-15 12:24] LABS: Hematocrit 26.0 % (37.0-53.0); Hemoglobin 8.8 g/dL (13.5-17.5)
--- NOTE | 2025-02-15 17:24 | NUR ---
SHIFT SUMMARY: PATIENT REMAINS ALERT AND ORIENTED. UP TO RECLINER WITH STAFF DURING MEALS. ON 4-6L HIGH FLOW NASAL CANNULA. CPT COMPLETED TODAY. CONTINUES TO HAVE PRODUCTIVE COUGH. TELE SHOWING AFIB WITH HR 80-100'S. CONTINUES TO DENY CHEST PAIN. TOLERATING PO DIET. BLOOD SUGAR CHECKS ACHS, FROM MIDLINE VENOUS BLOOD FINGER STICKS WERE INCONSISTENT. MEDICATED X1 THIS SHIFT FOR RIGHT FOOT PAIN. USING URINAL TO VOID. EATING DINNER AT THIS TIME. TIME DENIES NEEDS. CALL LIGHT IN REACH.
[2025-02-16] VITALS (7 sets, daily range): BP systolic 99–120; BP diastolic 60–77
--- NOTE | 2025-02-16 00:27 | NUR ---
MD NOTIFICATION PAIN UNCONTROLLED W CURRENT PRN REGIMEN. PT MOANING AND WRITHING IN PAIN. MD CALLED FOR PTC/O OF NEW CLAVICLE LEFT PAIN. STATES IT IS FROM CPT MACHING AND DENIES FALLING. OXYCODONE ORDER INCREASED TO 5-10 MG Q 6 AND A ONE TIME IV TORADOL ORDER GIVEN. MD TO SEE PT AT BEDSIDE AND DOESNT WANT IMAGING TO CLAVICLE AT THIS TIME
[2025-02-16] MEDS ORDERED: Ketorolac Tromethamine 30mg Vial IV ONE (01:00)
[2025-02-16 05:04] LABS: BASOPHILS ABSOLUTE AUTO 0.05 K/mm3 (0.00-0.23); BASOPHILS PERCENT AUTO 0 % (0-2); EOSINOPHILS ABSOLUTE AUTO 0.18 K/mm3 (0.00-0.68); EOSINOPHILS PERCENT AUTO 1 % (0-6); Hematocrit 22.9 % (37.0-53.0); Hemoglobin 7.8 g/dL (13.5-17.5); IMMATURE GRAN ABSOLUTE AUTO 0.64 K/mm3 (0.00-0.10); IMMATURE GRAN PERCENT AUTO 4 % (0-1); LYMPHOCYTES ABSOLUTE AUTO 1.50 K/mm3 (0.84-5.20); LYMPHOCYTES PERCENT AUTO 9 % (21-46); MONOCYTES ABSOLUTE AUTO 1.22 K/mm3 (0.16-1.47); MONOCYTES PERCENT AUTO 7 % (4-13); Mean Corpuscular HGB Conc 34.1 g/dL (31.5-36.5); Mean Corpuscular Volume 94 fL (80-100); NEUTROPHILS ABSOLUTE AUTO 14.13 K/mm3 (1.96-9.15); NEUTROPHILS PERCENT AUTO 80 % (41-73); NRBC ABSOLUTE 0.00 K/mm3 (0.00-0.02); NRBC Auto 0.0 /100 WBC (0.0-0.2); Platelet Count 525 K/mm3 (150-400); RDW Coefficient Variation 16.6 % (11.7-14.2); RDW Standard Deviation 55.1 fL (35.1-46.3)
--- NOTE | 2025-02-16 05:07 | NUR ---
END OF SHIFT REPORT AFIB 80-110'S. SCHEDULED PO METOPROLOL ADMINISTERED. PT ON 5 LITERS NC UP TILL AFTER MIDNIGHT. C/O NASAL CONGESTION AND REQ TO BE SWITCHED TO OXYMASK FOR SLEEP[. PT STILL EXPECTORATING THICK SPUTUM AND REPORTS IT IS CLEAR. PT HAD PAIN CRISIS STATING WITH CURRENT OXYCODONE REGIMEN INEFFECTIVE. MD CAME TO BEDSIDE AND INCREASED OXYCODONE TO 5-10 MG Q 6 HOURS AND ALSO ORDERED ONE TIME 30 MG KETOROLAC. PT STATES HE HAD INSTANT RELIEF W KETOROLAC. WILL PASS ON TO DAY RN TO DISCUSS W TEAM. PT WAS COMPLAINING OF PAIN TO LEFT CLAVICLE AND BLAMING CPT MACHING. DISCUSSED NEED FOR CONTINUED CPT TO GET PNU RESIDUE OUT OF LUNGS. PT WANTS TO DC. DISCUSSED NEED FOR ABX FOR INFECTION AND ENCOURAGED TO LOOK AT HOW FAR PT HAS COME.
[2025-02-16 05:25] LABS: Alanine Aminotransfer (ALT/SGP 70.0 U/L (12-78); Albumin, Blood 1.5 g/dL (3.4-5.0); Albumin/Globulin Ratio 0.4 (0.8-1.8); Anion Gap 9.0 mmol/L (3-11); Aspartate Aminotrans (AST/SGOT 31.0 U/L (12-37); Bilirubin, Total 0.5 mg/dL (0.1-1.0); Blood Urea Nitrogen 25.0 mg/dL (8-24); CO2, Blood 26.0 mmol/L (21-32); Calcium, Blood 7.2 mg/dL (8.5-10.1); Chloride, Blood 106.0 mmol/L (98-108); Creatinine, Blood 0.78 mg/dL (0.60-1.20); Globulin, Blood 3.7 g/dL (2.2-4.0); Glucose, Blood 99.0 mg/dL (70-99); Potassium, Blood 4.5 mmol/L (3.5-5.5); Sodium, Blood 136.0 mmol/L (136-145); Total Protein, Blood 5.2 g/dL (6.4-8.2)
--- NOTE | 2025-02-16 06:25 | NUR ---
MD NOTIFICATION GIVING PRILOSEC TO PT THIS AM, WHERE PT CLAVICLE JOINS STERNAL AREA SWOLLEN. THIS IS AREA WHERE PT HAD PAIN OVERNIGHT. MD TO CALL DAY TEAM TO ADDRESS FOR ANY IMAGING NEEDS. PT C/O CPT TO CHEST AREA CAUSING THIS PAIN.
[2025-02-16] MEDS ORDERED: Insulin Glargine-Yfgn 100 Unit/mL 3 ML SYR SC SCH (09:00)
[2025-02-16 12:41] LABS: Vancomycin, Trough 22.4 ug/mL (5.0-10.0)
[2025-02-16] MEDS ORDERED: Lidocaine 4% 1 Patch TOP SCH (13:55)
--- NOTE | 2025-02-16 19:08 | NUR ---
TRANSFER PT TRANSFERRED FROM [facility] AT 1820. ORIENTED TO ROOM. CALL LIGHT IN REACH. 3L O2 HIGH FLOW NC. DINNER TRAY BROUGHT OVER FROM U. VOIDED 300 ML IN URINAL.
[2025-02-17] MEDS ORDERED: FentaNYL Citrate 50 MCG/ML 2 ML Injection IV PRN ×2 (02:00→03:15)
[2025-02-17] MEDS ORDERED: FentaNYL Citrate 50 MCG/ML 2 ML Injection ONE (02:12)
[2025-02-17] MEDS ORDERED: HYDROmorphone HCl/Pf 1MG SYR IV ONE (03:05)
[2025-02-17] MEDS ORDERED: HYDROmorphone HCl/Pf 1MG SYR IV PRN (03:20)
[2025-02-17 03:52] VITALS: BP 148/105
--- NOTE | 2025-02-17 06:10 | NUR ---
SHIFT SUMMARY: PT AOX3-4 CONFUSION AT TIMES, BUT IS EASILY REIDRECTED. NOT IMPULSIVE AND DOES NOT TRY TO GET OUT OF BED. CALLS APPROPRIATELY AT TIMES. WAS ABLE TO SLEEP WELL WITHOUT COMPLAINTS THE FIRST HALF OF THE SHIFT. PT THEN WOKE UP TO USE THE RESTROOM AND COMPLAINED OF EXCRUCIATING PAIN IN L FOOT FROM SWELLING. PULSES INTACT AND GOOD COLOR. MEDITECH WAS DOWN, PROVIDER NOTIFIED AND MEDICATIONS GIVEN PER PROTOCOL. INITIAL MEDICATIONS DIDNT HELP AND PT CONTINUED TO MOAN AND GROAN LOUDLY IN PAIN. ABLE TO GET FURTHER IV PAIN MEDICATIONS THAT WORKED FOR A WHILE. PT THEN AWOKE STILL IN PAIN THIS TIME IN R WRIST. PO PAIN MEDICATION AVAILABLE AND GIVEN. PT TOLERATED WELL. IS CURRENTLY SLEEPING. PT ON OXYMASK AT NIGHT 3L. PT IN BED RESTING, BED IN LOWEST POSITION, CALL LIGHT IN REACH. CONTINUING CARE.
[2025-02-17 07:10] VITALS: BP 143/92
[2025-02-17 07:27] LABS: BASOPHILS ABSOLUTE AUTO 0.07 K/mm3 (0.00-0.23); BASOPHILS PERCENT AUTO 0 % (0-2); EOSINOPHILS ABSOLUTE AUTO 0.02 K/mm3 (0.00-0.68); EOSINOPHILS PERCENT AUTO 0 % (0-6); Hematocrit 25.2 % (37.0-53.0); Hemoglobin 8.3 g/dL (13.5-17.5); IMMATURE GRAN ABSOLUTE AUTO 0.45 K/mm3 (0.00-0.10); IMMATURE GRAN PERCENT AUTO 2 % (0-1); LYMPHOCYTES ABSOLUTE AUTO 0.81 K/mm3 (0.84-5.20); LYMPHOCYTES PERCENT AUTO 4 % (21-46); MONOCYTES ABSOLUTE AUTO 1.33 K/mm3 (0.16-1.47); MONOCYTES PERCENT AUTO 6 % (4-13); Mean Corpuscular HGB Conc 32.9 g/dL (31.5-36.5); Mean Corpuscular Volume 94 fL (80-100); NEUTROPHILS ABSOLUTE AUTO 19.11 K/mm3 (1.96-9.15); NEUTROPHILS PERCENT AUTO 88 % (41-73); NRBC ABSOLUTE 0.00 K/mm3 (0.00-0.02); NRBC Auto 0.0 /100 WBC (0.0-0.2); Platelet Count 584 K/mm3 (150-400); RDW Coefficient Variation 16.2 % (11.7-14.2); RDW Standard Deviation 55.3 fL (35.1-46.3)
[2025-02-17 07:54] LABS: Alanine Aminotransfer (ALT/SGP 68.0 U/L (12-78); Albumin, Blood 1.8 g/dL (3.4-5.0); Albumin/Globulin Ratio 0.4 (0.8-1.8); Anion Gap 8.0 mmol/L (3-11); Aspartate Aminotrans (AST/SGOT 31.0 U/L (12-37); Bilirubin, Total 1.1 mg/dL (0.1-1.0); Blood Urea Nitrogen 21.0 mg/dL (8-24); CO2, Blood 26.0 mmol/L (21-32); Calcium, Blood 7.9 mg/dL (8.5-10.1); Chloride, Blood 99.0 mmol/L (98-108); Creatinine, Blood 0.78 mg/dL (0.60-1.20); Globulin, Blood 4.3 g/dL (2.2-4.0); Glucose, Blood 120.0 mg/dL (70-99); Potassium, Blood 4.3 mmol/L (3.5-5.5); Sodium, Blood 129.0 mmol/L (136-145); Total Protein, Blood 6.1 g/dL (6.4-8.2)
[2025-02-17] MEDS ORDERED: Enoxaparin 100 MG/ML 1ML SYR SC SCH (09:00)
[2025-02-17] MEDS ORDERED: NS 500 ML IV SCH (09:00)
[2025-02-17] MEDS ORDERED: Colchicine 0.6 MG TAB PO ONE (10:00)
[2025-02-17] MEDS ORDERED: Colchicine 0.6 MG TAB PO SCH ×2 (11:00→21:00)
[2025-02-17 16:08] VITALS: BP 118/78
[2025-02-17 16:12] LABS: Vancomycin, Trough 15.0 ug/mL (5.0-10.0)
--- NOTE | 2025-02-17 16:35 | NUR ---
DISCUSSED CASE WITH CARE TEAM THIS MORNING. PATIENT IS EXPERIENCING UNCONTROLLED PAIN PER REPORT. REVIEW OF PATIENTS CHART AND ORDERS. PATIENT HAS NEW ORDERS IN PLACE FOR PAIN CONTROL. FOLLOWED UP WITH PATIENT THIS AFTERNOON. AT THIS TIME HE WAS SLEEPING AND SNORING. DISCUSSED CASE ZORAIDA BOWLESREstiven. SHE REPORTED THAT HIS SYMPTOMS WERE MUCH IMPROVED WITH CHANGE IN MEDICATION
--- NOTE | 2025-02-17 17:32 | NUR ---
SUMMARY- PT A/O X3, ABLE TO USE CALL LIGHT. PT HAVING SEVERE PAIN IN WRISTS AND ANKLES PRESUMED TO BE FROM GOUT. AREAS ARE SWOLLEN AND WARM. APPLYING ICE REGULARLLY. PRN OXYCODONE CONTROLLING PAIN. STARTING ON BOWEL REGIMINE NO BM SINCE THE . DR HERNANDEZ CAME TO ASSESS THE PT THIS AFTERNOON. PT TOLERATING FOOD AND FLUID. DECLINED TO GET OOB RELATED TO PAIN. PT'S LUNGS HAVE CRACKLES IN THE L LOWER 1/3. ENC TO COUGH AND DEEP BREATH. UNABLE TO HOLD FLUTTER OF IS. COUGH IS STRONG, MOIST, PT STATES MIN PRODUCTION. USING MUCINEX AND COUGH PEARLS SCHEDULED. OXYGEN AT 3L, SATS 94%. BLOOD SUGARS IN GOOD RANGE. ADMIN NS 500 ML AT 125ML/HR. USING URINAL. WILL REPORT TO NOC RN
[2025-02-17 20:58] VITALS: BP 97/68
[2025-02-18 03:03] VITALS: BP 116/74
--- NOTE | 2025-02-18 05:02 | NUR ---
SHIFT SUMMARY PT ALERT ORIENTED ABLE TO VERBALIZE NEEDS REMAINS VERY WEAK TO UPPER AND LOWER EXTREMITIES. HE GOT UP TO THE COMMODE AND REQUIRED 2 PERSON MAX ASSIST. HES HAVING A HARD TIME BEARING WEIGHT TO HIS LOWER EXTREMITIES DUE TO PAIN AND SWELLING. REMAINS ON 3L VIA NC DURING DAY AND MASK AT NIGHT SATTING 91-92%. REMAINS ON VANCO AND ROCEPHIN FOR PNEUMONIA. CONTINUES ON DROPLET ISOLATION R/T MRSA IN SPUTUM. HE WAS ABLE TO COUGH UP SOME WHITISH COLORED SPUTUM AND I SUCTIONED HIM. HE HAS A CONDOM CATH INTACT. POWER GLIDE TO LT UPPER ARM SL. REMAINS ON COLCHICINE BID FOR GOUT. C/O PAIN TO BILAT ARMS AND LEGS MEDICATED WITH OXY AND FLEXERIL. HE RECEIVED MOM THIS SHIFT AND HAD A XLG BM. FS DONE AC AND HS WAS 229. RESTING IN BED AT THIS TIME WITH CALL LIGHT IN REACH
[2025-02-18 05:52] LABS: BASOPHILS ABSOLUTE AUTO 0.09 K/mm3 (0.00-0.23); BASOPHILS PERCENT AUTO 1 % (0-2); EOSINOPHILS ABSOLUTE AUTO 0.03 K/mm3 (0.00-0.68); EOSINOPHILS PERCENT AUTO 0 % (0-6); Hematocrit 24.0 % (37.0-53.0); Hemoglobin 8.0 g/dL (13.5-17.5); IMMATURE GRAN ABSOLUTE AUTO 0.21 K/mm3 (0.00-0.10); IMMATURE GRAN PERCENT AUTO 1 % (0-1); LYMPHOCYTES ABSOLUTE AUTO 1.05 K/mm3 (0.84-5.20); LYMPHOCYTES PERCENT AUTO 6 % (21-46); MONOCYTES ABSOLUTE AUTO 2.07 K/mm3 (0.16-1.47); MONOCYTES PERCENT AUTO 12 % (4-13); Mean Corpuscular HGB Conc 33.3 g/dL (31.5-36.5); Mean Corpuscular Volume 94 fL (80-100); NEUTROPHILS ABSOLUTE AUTO 13.19 K/mm3 (1.96-9.15); NEUTROPHILS PERCENT AUTO 79 % (41-73); NRBC ABSOLUTE 0.00 K/mm3 (0.00-0.02); NRBC Auto 0.0 /100 WBC (0.0-0.2); Platelet Count 541 K/mm3 (150-400); RDW Coefficient Variation 15.5 % (11.7-14.2); RDW Standard Deviation 52.6 fL (35.1-46.3)
[2025-02-18 06:11] LABS: Alanine Aminotransfer (ALT/SGP 73.0 U/L (12-78); Albumin, Blood 1.5 g/dL (3.4-5.0); Albumin/Globulin Ratio 0.3 (0.8-1.8); Anion Gap 9.0 mmol/L (3-11); Aspartate Aminotrans (AST/SGOT 51.0 U/L (12-37); Bilirubin, Total 0.8 mg/dL (0.1-1.0); Blood Urea Nitrogen 19.0 mg/dL (8-24); CO2, Blood 27.0 mmol/L (21-32); Calcium, Blood 7.5 mg/dL (8.5-10.1); Chloride, Blood 99.0 mmol/L (98-108); Creatinine, Blood 0.79 mg/dL (0.60-1.20); Globulin, Blood 4.3 g/dL (2.2-4.0); Glucose, Blood 137.0 mg/dL (70-99); Potassium, Blood 4.2 mmol/L (3.5-5.5); Sodium, Blood 131.0 mmol/L (136-145); Total Protein, Blood 5.8 g/dL (6.4-8.2)
[2025-02-18] MEDS ORDERED: NS 500 ML IV SCH (07:00)
[2025-02-18 07:13] VITALS: BP 104/77
[2025-02-18 14:06] LABS: Rheumatoid Factor, Serum Positive (Negative)
[2025-02-18 14:07] LABS: RA, SEMIQUANTITATIVE 64 IU/ml (<8)
[2025-02-18 15:59] VITALS: BP 117/78
[2025-02-18 17:21] VITALS: BP 119/66
--- NOTE | 2025-02-18 18:40 | NUR ---
SUMMARY- PT A/O X4. UP IN CHAIR FOR LUNCH AND THROUGH DINNER. PT'S LUNGS CONT COARSE IN L LOWER HALF. PT HAS FREQ MOIST COUGH WITH OCC PRODUCTION. PT ENC FLUTTER, COUGH AND DEEP BREATH. ON 3L NC, SATS OVER 90%. PT NAPPED ON AND OFF TODAY. PAIN CONTINUES IN WRISTS AND ANKLES, PRESENTING WITH SWELLING AND SEVERE PAIN TO TOUCH OR MOVEMENT. BARELY ABLE TO MOVE OR USE R ARM. MEDICATED WITH PRN OXYCODONE 10MG APPROX Q4. PAIN TOLERABLE, HAD ONE DOSE OF DILAUDID FOR BREAKTHROUGH PAIN. PT TOLERATING FOOD AND FLUID AND HAD XXLG BM LAST NIGHT AFTER MOM. STARETED ON SENNEKOT DAILY. 1700 HAD TEMP 101.5- CALL TO JESUS ALBERTO- ORDER FOR BLOOD CX X2 SITES- WILL REPORT TO NOC RN
[2025-02-18 19:49] VITALS: BP 105/67
[2025-02-19 03:11] LABS: CYCLIC CITRULLINATED PEP,IGG/A 3 Units (0-19)
[2025-02-19 03:43] VITALS: BP 99/66
--- NOTE | 2025-02-19 04:57 | NUR ---
SHIFT SUMMARY PT ALERT ORIENTED WITH INTERMITTENT CONFUSION ABLE TO VERBALIZE NEEDS HAS A HARD TIME USING CALL LIGHT DUE TO ARTHRITIS AND GOUT IN BILAT HANDS AND FEET. HES REQUIRING A SIT TO STAND TO GET UP BUT EVEN HAD A HARD TIME USING IT. HE REQUIRED 4 PEOPLE TO GET HIM BACK INTO THE BED. HES VERY WEAK REMAINS ON VANCO AND ROCEPHIN ORDERED FOR PNEUMONIA. ALSO REMAINS ON COLCHICINE FOR GOUT. HE HAS EDEMA TO HIS SCROTUM PENIS BILAT FEET AND RT HAND. REMAINS ON DROPLET CONTACT ISOLATION R/T MRSA IN SPUTUM. HE HAS A ORDER FOR A ST EVAL. BLOOD CULTURES WERE DONE YESTERDAY AWAITING RESULTS. REMAINS ON 3L O2 VIA NC DURING DAY AND MASK AT NIGHT. POWERGLIDE INTACT TO LT UPPER ARM IS SL. CONDOM CATH INTACT DRAINING DARK YELLOW URINE. HES DRINKING FLUIDS WELL. NO FEVER THIS SHIFT. HE C/O PAIN ALL OVER BODY MEDICATED WITH OXY AND DILAUDID. HE GETS VERY ANXIOUS AT TIMES. NO SIGNS BLEED THIS SHIFT. REMAINS WITH A PRODUCTIVE COUGH WITH WHITE THICK SPUTUM. SLEEPING IN BED AT THIS TIME WITH CALL LIGHT IN REACH
[2025-02-19 07:29] VITALS: BP 115/78
[2025-02-19 08:38] LABS: BASOPHILS ABSOLUTE AUTO 0.07 K/mm3 (0.00-0.23); BASOPHILS PERCENT AUTO 1 % (0-2); EOSINOPHILS ABSOLUTE AUTO 0.05 K/mm3 (0.00-0.68); EOSINOPHILS PERCENT AUTO 0 % (0-6); Hematocrit 22.9 % (37.0-53.0); Hemoglobin 7.7 g/dL (13.5-17.5); IMMATURE GRAN ABSOLUTE AUTO 0.09 K/mm3 (0.00-0.10); IMMATURE GRAN PERCENT AUTO 1 % (0-1); LYMPHOCYTES ABSOLUTE AUTO 1.18 K/mm3 (0.84-5.20); LYMPHOCYTES PERCENT AUTO 10 % (21-46); MONOCYTES ABSOLUTE AUTO 1.83 K/mm3 (0.16-1.47); MONOCYTES PERCENT AUTO 15 % (4-13); Mean Corpuscular HGB Conc 33.6 g/dL (31.5-36.5); Mean Corpuscular Volume 94 fL (80-100); NEUTROPHILS ABSOLUTE AUTO 8.68 K/mm3 (1.96-9.15); NEUTROPHILS PERCENT AUTO 73 % (41-73); NRBC ABSOLUTE 0.00 K/mm3 (0.00-0.02); NRBC Auto 0.0 /100 WBC (0.0-0.2); Platelet Count 495 K/mm3 (150-400); RDW Coefficient Variation 15.7 % (11.7-14.2); RDW Standard Deviation 53.5 fL (35.1-46.3)
[2025-02-19 09:09] LABS: Alanine Aminotransfer (ALT/SGP 80.0 U/L (12-78); Albumin, Blood 1.4 g/dL (3.4-5.0); Albumin/Globulin Ratio 0.3 (0.8-1.8); Anion Gap 8.0 mmol/L (3-11); Aspartate Aminotrans (AST/SGOT 59.0 U/L (12-37); Bilirubin, Total 1.1 mg/dL (0.1-1.0); Blood Urea Nitrogen 17.0 mg/dL (8-24); CO2, Blood 27.0 mmol/L (21-32); Calcium, Blood 7.8 mg/dL (8.5-10.1); Chloride, Blood 96.0 mmol/L (98-108); Creatinine, Blood 0.74 mg/dL (0.60-1.20); Globulin, Blood 4.7 g/dL (2.2-4.0); Glucose, Blood 112.0 mg/dL (70-99); Potassium, Blood 4.1 mmol/L (3.5-5.5); Sodium, Blood 127.0 mmol/L (136-145); Total Protein, Blood 6.1 g/dL (6.4-8.2)
[2025-02-19] MEDS ORDERED: NS 1,000 ML IV SCH (11:00)
[2025-02-19 11:06] LABS: ANTI-NUCLEAR AB ANA,IGG ELISA None Detected (None Detected)
[2025-02-19 16:04] VITALS: BP 128/85
[2025-02-19] MEDS ORDERED: Piperacillin/Tazobactam Sod 3.375 GM in NS 100 ML IV SCH (18:00)
--- NOTE | 2025-02-19 18:28 | NUR ---
End of shift summary: Patient alert and oriented x3 with few bouts of confused conversation this shift. Patient with significant pain control issues this am and medicated per EMAR with good results this afternoon voiced. Patient with complaint of "needing to pee" and due to severe pain/agitation bladder scan completed and showed 828ml. Order obtained for straight catheter and completed with 1100ml urine output. Patient relieved and with no further pain voiced. All medications administered per EMAR. Patient denied CP, N/V/D today but did have continued bouts of SOB. Patient is utilizing call light appropriately; call light within reach, bed in lowest position. Will continue to monitor until next shift nurse arrives and report is given.
[2025-02-19 19:40] VITALS: BP 113/74
[2025-02-19] MEDS ORDERED: FentaNYL Citrate 50 MCG/ML 2 ML Injection IV PRN (23:20)
[2025-02-20] VITALS (9 sets, daily range): BP systolic 95–123; BP diastolic 63–91
--- NOTE | 2025-02-20 05:45 | NUR ---
SHIFT SUMMARY PATIENT A/O X3, FORGETFUL AT TIME. CALLED HOSPITALIST AT APPROX 2300 TO REPORT THAT PATIENT'S R ARM HAD INCREASED PAIN AND SWELLING, UP TO THE SHOULDER, IS HOT TO TOUCH, AND RED IN COLOR. REQUESTED POSS IMAGING OR ULTRASOUND AND SOMETHING TO HELP CONTROL HIS PAIN BETTER. TELEPHONE ORDER FOR FENTANYL 25MCG Q2H PRN FOR PAIN, AND TO TALK TO DAY SHIFT PROVIDER REGARDING IMAGING. PATIENT SLEPT FOR APPROX 3 HOURS AND WOKE UP NEEDING TO HAVE A BOWEL MOVEMENT AND URINATE. [place] [facility] [place] 2 [place]. PATIENT HAD XL DARK/BLACK BOWEL MOVEMENT AND URINATED 500ML. ONCE PATIENT WAS BACK IN BED, HE REPORTED INCREASE IN PAIN. PO PAIN MEDS GIVEN, AND APPROX 1 HOUR LATER PATIENT REPORTED SIGNIFICANT PAIN, FENT GIVEN AT THAT TIME PER EMAR. PATIENT FELL BACK TO SLEEP AND APPEARED COMFORTABLE. PATIENT VOIDING WELL THIS SHIFT, WITH OVER 800ML OF OUTPUT. VITAL SIGNS REMAINED STABLE. WILL CONTINUE TO MONITOR AND REPORT TO ONCOMING RN.
[2025-02-20 06:24] LABS: BASOPHILS ABSOLUTE AUTO 0.09 K/mm3 (0.00-0.23); BASOPHILS PERCENT AUTO 1 % (0-2); EOSINOPHILS ABSOLUTE AUTO 0.10 K/mm3 (0.00-0.68); EOSINOPHILS PERCENT AUTO 1 % (0-6); Hematocrit 20.2 % (37.0-53.0); Hemoglobin 6.5 g/dL (13.5-17.5); IMMATURE GRAN ABSOLUTE AUTO 0.08 K/mm3 (0.00-0.10); IMMATURE GRAN PERCENT AUTO 1 % (0-1); LYMPHOCYTES ABSOLUTE AUTO 0.99 K/mm3 (0.84-5.20); LYMPHOCYTES PERCENT AUTO 11 % (21-46); MONOCYTES ABSOLUTE AUTO 1.36 K/mm3 (0.16-1.47); MONOCYTES PERCENT AUTO 15 % (4-13); Mean Corpuscular HGB Conc 32.2 g/dL (31.5-36.5); Mean Corpuscular Volume 95 fL (80-100); NEUTROPHILS ABSOLUTE AUTO 6.65 K/mm3 (1.96-9.15); NEUTROPHILS PERCENT AUTO 72 % (41-73); NRBC ABSOLUTE 0.00 K/mm3 (0.00-0.02); NRBC Auto 0.0 /100 WBC (0.0-0.2); Platelet Count 478 K/mm3 (150-400); RDW Coefficient Variation 15.9 % (11.7-14.2); RDW Standard Deviation 55.6 fL (35.1-46.3)
[2025-02-20 06:41] LABS: Alanine Aminotransfer (ALT/SGP 67.0 U/L (12-78); Albumin, Blood 1.3 g/dL (3.4-5.0); Albumin/Globulin Ratio 0.3 (0.8-1.8); Anion Gap 8.0 mmol/L (3-11); Aspartate Aminotrans (AST/SGOT 48.0 U/L (12-37); Bilirubin, Total 0.5 mg/dL (0.1-1.0); Blood Urea Nitrogen 15.0 mg/dL (8-24); CO2, Blood 27.0 mmol/L (21-32); Calcium, Blood 7.6 mg/dL (8.5-10.1); Chloride, Blood 98.0 mmol/L (98-108); Creatinine, Blood 0.83 mg/dL (0.60-1.20); Globulin, Blood 4.4 g/dL (2.2-4.0); Glucose, Blood 112.0 mg/dL (70-99); Potassium, Blood 4.3 mmol/L (3.5-5.5); Sodium, Blood 129.0 mmol/L (136-145); Total Protein, Blood 5.7 g/dL (6.4-8.2)
--- NOTE | 2025-02-20 07:11 | NUR ---
BLADDER SCAN COMPLETE, PLACED INDWELLING CATHETER PER ORDERS, IMMEDIATE RETURN OF 600ML CLEAR YELLOW URINE. PATIENT TOLERATED WELL.
[2025-02-20] MEDS ORDERED: NS 500 ML IV SCH (10:35)
[2025-02-20 15:54] LABS: Hematocrit 26.7 % (37.0-53.0); Hemoglobin 8.7 g/dL (13.5-17.5)
[2025-02-20 16:26] LABS: Vancomycin, Trough 17.5 ug/mL (5.0-10.0)
--- NOTE | 2025-02-20 18:06 | NUR ---
End of shift summary: Patient alert and oriented x 3 with bouts of confused conversations; pleasant and cooperative with care. Patient with low H&H and 1 unit PRBC's administered Without difficulty or issues. Patient with continued pain today and order for Venous US and being completed in room at this time to r/o DVT. All medications administered per EMAR. Patient with urbano catheter in place draining mitali urine. Right arm with continued swelling/pain/heat and ice packs being used throughout the day. Patient utilizing call light appropriately; call light within reach, bed in lowest position. Will continue to monitor until next shift nurse arrives and report is given.
--- NOTE | 2025-02-21 05:09 | NUR ---
SHIFT SUMMARY PATIENT A/O X3, FORGETFUL AT TIMES. PLEASANT AND COOPERATIVE WITH CARE. CONTINUES TO HAVE PAIN IN HIS BACK AND R ARM. MEDICATED PER EMAR, ICED, AND ELEVATED THROUGHOUT SHIFT. HUGO DRAINING CLEAR YELLOW URINE TO GRAVITY, NO BM THIS SHIFT. PT REMAINED BEDREST THROUGHOUT SHIFT. ADEQUATE ORAL INTAKE. VITAL SIGNS REMAINED STABLE, NO ACUTE CHANGES. WILL CONTINUE TO MONITOR AND REPORT TO ONCOMING RN.
[2025-02-21 05:21] VITALS: BP 120/92
[2025-02-21 05:45] LABS: BASOPHILS ABSOLUTE AUTO 0.01 K/mm3 (0.00-0.23); BASOPHILS PERCENT AUTO 0 % (0-2); EOSINOPHILS ABSOLUTE AUTO 0.01 K/mm3 (0.00-0.68); EOSINOPHILS PERCENT AUTO 0 % (0-6); Hematocrit 23.5 % (37.0-53.0); Hemoglobin 7.9 g/dL (13.5-17.5); IMMATURE GRAN ABSOLUTE AUTO 0.09 K/mm3 (0.00-0.10); IMMATURE GRAN PERCENT AUTO 1 % (0-1); LYMPHOCYTES ABSOLUTE AUTO 0.65 K/mm3 (0.84-5.20); LYMPHOCYTES PERCENT AUTO 7 % (21-46); MONOCYTES ABSOLUTE AUTO 1.03 K/mm3 (0.16-1.47); MONOCYTES PERCENT AUTO 11 % (4-13); Mean Corpuscular HGB Conc 33.6 g/dL (31.5-36.5); Mean Corpuscular Volume 92 fL (80-100); NEUTROPHILS ABSOLUTE AUTO 7.33 K/mm3 (1.96-9.15); NEUTROPHILS PERCENT AUTO 80 % (41-73); NRBC ABSOLUTE 0.00 K/mm3 (0.00-0.02); NRBC Auto 0.0 /100 WBC (0.0-0.2); Platelet Count 508 K/mm3 (150-400); RDW Coefficient Variation 16.7 % (11.7-14.2); RDW Standard Deviation 57.0 fL (35.1-46.3)
[2025-02-21 06:06] LABS: Alanine Aminotransfer (ALT/SGP 68.0 U/L (12-78); Albumin, Blood 1.4 g/dL (3.4-5.0); Albumin/Globulin Ratio 0.3 (0.8-1.8); Anion Gap 8.0 mmol/L (3-11); Aspartate Aminotrans (AST/SGOT 40.0 U/L (12-37); Bilirubin, Total 0.6 mg/dL (0.1-1.0); Blood Urea Nitrogen 20.0 mg/dL (8-24); CO2, Blood 27.0 mmol/L (21-32); Calcium, Blood 8.1 mg/dL (8.5-10.1); Chloride, Blood 101.0 mmol/L (98-108); Creatinine, Blood 0.85 mg/dL (0.60-1.20); Globulin, Blood 4.9 g/dL (2.2-4.0); Glucose, Blood 215.0 mg/dL (70-99); Potassium, Blood 4.0 mmol/L (3.5-5.5); Sodium, Blood 132.0 mmol/L (136-145); Total Protein, Blood 6.3 g/dL (6.4-8.2)
[2025-02-21 07:53] VITALS: BP 108/78
[2025-02-21 09:10] LABS: Influenza A/2009-H1 Not Detected (NOT DETECT); SARS-Cov-2 (COVID-19), BioFire Not Detected (NOT DETECT)
[2025-02-21 15:11] VITALS: BP 128/95
--- NOTE | 2025-02-21 17:48 | NUR ---
End of shift summary: Patient is alert and oriented x3; pleasant and cooperative with cares. Patient with continued pain in right arm and medicated per EMAR with good relief today. All medications administered per EMAR. Patient with Pulmonology consult today and Osseous scan completed per order. Patient denied N/V/D, CP today; did have SOB with exertion and utilizing Oxygen at 3L. No acute changes this shift. Sarah catheter in place and draining yellow urine. Bed in lowest position, call light within reach. Will continue to monitor until next shift nurse arrives and report is given.
[2025-02-21 20:29] VITALS: BP 152/81
[2025-02-21 22:56] LABS: pH Blood Venous 7.48 (7.34-7.37)
--- NOTE | 2025-02-22 04:02 | NUR ---
SHIFT SUMMARY 69 YR M ADMITTED ON 02/06/25. FULL CODE. PT WAS HAVING DIFFICULTY KEEPING O2 STATS ABOVE 90% WHEN HE WAS ON 4L FACEMASK. O2 WAS TITRATED UP TO EVENTUALLY NEEDING 15 L O2 AND STILL ONLY SATING IN THE MID TO HIGH 80'S. RT WAS NOTIFIED AND SPENT TIME WITH PT TRYING TO TROUBLE SHOOT. AT APPROX 2215 RT SUGGESTED CALLING THE HOSPITALIST. CALL WAS MADE AND ORDER FOR STAT CHEST X RAY AND VBG WERE PUT IN. VBG SHOWED A PH OF 7.48 AND XRAY HAS NOT BEEN RESULTED YET. HOWEVER, WITHIN AN HOUR OR SO OF THESE TESTS, PT'S SATS WENT UP TO 100 SO O2 WAS TITRATED DOWN AND BY 0300 PT WAS DOWN TO 2 L O2 AND SATING IN THE MID 90'S. THROUGHOUT THE NIGHT PT DENIED SOB OR DIFFICULTY BREATHING. NO CHEST PAIN OR TIGHTNESS. PT MEDICATED FOR FOOT AND SHOULDER PAIN WITH GOOD RESULTS. BED IN LOW POSITION AND CALL LIGHT IN REACH. PT ABLE TO MAKE HIS NEEDS KNOWN.
[2025-02-22 04:51] VITALS: BP 127/84
[2025-02-22 05:16] LABS: BASOPHILS ABSOLUTE AUTO 0.01 K/mm3 (0.00-0.23); BASOPHILS PERCENT AUTO 0 % (0-2); EOSINOPHILS ABSOLUTE AUTO 0.00 K/mm3 (0.00-0.68); EOSINOPHILS PERCENT AUTO 0 % (0-6); Hematocrit 22.8 % (37.0-53.0); Hemoglobin 7.7 g/dL (13.5-17.5); IMMATURE GRAN ABSOLUTE AUTO 0.06 K/mm3 (0.00-0.10); IMMATURE GRAN PERCENT AUTO 1 % (0-1); LYMPHOCYTES ABSOLUTE AUTO 0.82 K/mm3 (0.84-5.20); LYMPHOCYTES PERCENT AUTO 9 % (21-46); MONOCYTES ABSOLUTE AUTO 0.78 K/mm3 (0.16-1.47); MONOCYTES PERCENT AUTO 8 % (4-13); Mean Corpuscular HGB Conc 33.8 g/dL (31.5-36.5); Mean Corpuscular Volume 92 fL (80-100); NEUTROPHILS ABSOLUTE AUTO 7.77 K/mm3 (1.96-9.15); NEUTROPHILS PERCENT AUTO 82 % (41-73); NRBC ABSOLUTE 0.00 K/mm3 (0.00-0.02); NRBC Auto 0.0 /100 WBC (0.0-0.2); Platelet Count 480 K/mm3 (150-400); RDW Coefficient Variation 16.9 % (11.7-14.2); RDW Standard Deviation 57.2 fL (35.1-46.3)
[2025-02-22 06:06] LABS: Alanine Aminotransfer (ALT/SGP 84 U/L (12-78); Albumin, Blood 1.5 g/dL (3.4-5.0); Albumin/Globulin Ratio 0.3 (0.8-1.8); Anion Gap 8 mmol/L (3-11); Aspartate Aminotrans (AST/SGOT 55 U/L (12-37); Bilirubin, Total 0.3 mg/dL (0.1-1.0); Blood Urea Nitrogen 23 mg/dL (8-24); CO2, Blood 27 mmol/L (21-32); Calcium, Blood 8.1 mg/dL (8.5-10.1); Chloride, Blood 102 mmol/L (98-108); Creatinine, Blood 0.76 mg/dL (0.60-1.20); Globulin, Blood 4.8 g/dL (2.2-4.0); Glucose, Blood 281 mg/dL (70-99); Potassium, Blood 4.0 mmol/L (3.5-5.5); Sodium, Blood 133 mmol/L (136-145); Total Protein, Blood 6.3 g/dL (6.4-8.2); Vancomycin, Trough 14.8 ug/mL (5.0-10.0)
[2025-02-22 07:19] VITALS: BP 126/85
--- NOTE | 2025-02-22 16:46 | NUR ---
SHIFT SUMMARY NO ACUTE CHANGES, A/Ox4, ABLE TO MAKE NEEDS KNOWN AND CALLS APPROPRIATELY. OT WORKED WITH PT, NOW 1 ASSIST TO CHAIR/BSC. LARGE BM TODAY. TREATED FOR PAIN TO R ARM PER EMAR. GOOD APPETITE. PLEASANT AND COOPERATIVE WITH CARE. IV ABX ADMINISTERED PER ORDERS. PT CURRENTLY SITTING UP IN CHAIR; CHAIR ALARM IN PLACE. CALL LIGHT WITHIN REACH.
[2025-02-22 17:04] VITALS: BP 130/85
[2025-02-22 20:00] VITALS: BP 135/92
--- NOTE | 2025-02-23 04:40 | NUR ---
SHIFT SUMMARY PT APPEARS TO HAVE SLEPT COMFORTABLY THROUGHOUT THE NIGHT. HE IS ON 2 L O2 BY NC AND SATS STAYED CONSISTENTLY IN THE MID 90'S. HUGO IS PATENT AND DRAINING WELL. PT IS A&O X 4 AND ABLE TO MAKE HIS NEEDS KNOWN. NO NEW CHANGES TO REPORT. BED IN LOW POSITION AND CALL LIGHT IN REACH.
[2025-02-23 06:04] VITALS: BP 119/89
[2025-02-23 07:08] LABS: QUANTIFERON MITOGEN MINUS NIL 1.16 IU/mL; QUANTIFERON NIL 0.02 IU/mL; QUANTIFERON PLUS TB1 MINUS NIL 0.00 IU/mL (<=0.34); QUANTIFERON PLUS TB2 MINUS NIL 0.00 IU/mL (<=0.34)
[2025-02-23 07:33] VITALS: BP 123/87
[2025-02-23 09:11] LABS: BASOPHILS ABSOLUTE AUTO 0.02 K/mm3 (0.00-0.23); BASOPHILS PERCENT AUTO 0 % (0-2); EOSINOPHILS ABSOLUTE AUTO 0.05 K/mm3 (0.00-0.68); EOSINOPHILS PERCENT AUTO 1 % (0-6); Hematocrit 24.1 % (37.0-53.0); Hemoglobin 7.8 g/dL (13.5-17.5); IMMATURE GRAN ABSOLUTE AUTO 0.09 K/mm3 (0.00-0.10); IMMATURE GRAN PERCENT AUTO 1 % (0-1); LYMPHOCYTES ABSOLUTE AUTO 1.68 K/mm3 (0.84-5.20); LYMPHOCYTES PERCENT AUTO 17 % (21-46); MONOCYTES ABSOLUTE AUTO 0.87 K/mm3 (0.16-1.47); MONOCYTES PERCENT AUTO 9 % (4-13); Mean Corpuscular HGB Conc 32.4 g/dL (31.5-36.5); Mean Corpuscular Volume 94 fL (80-100); NEUTROPHILS ABSOLUTE AUTO 7.39 K/mm3 (1.96-9.15); NEUTROPHILS PERCENT AUTO 73 % (41-73); NRBC ABSOLUTE 0.00 K/mm3 (0.00-0.02); NRBC Auto 0.0 /100 WBC (0.0-0.2); Platelet Count 519 K/mm3 (150-400); RDW Coefficient Variation 17.2 % (11.7-14.2); RDW Standard Deviation 58.8 fL (35.1-46.3)
[2025-02-23 09:31] LABS: Alanine Aminotransfer (ALT/SGP 88.0 U/L (12-78); Albumin, Blood 1.7 g/dL (3.4-5.0); Albumin/Globulin Ratio 0.4 (0.8-1.8); Anion Gap 6.0 mmol/L (3-11); Aspartate Aminotrans (AST/SGOT 38.0 U/L (12-37); Bilirubin, Total 0.4 mg/dL (0.1-1.0); Blood Urea Nitrogen 22.0 mg/dL (8-24); CO2, Blood 29.0 mmol/L (21-32); Calcium, Blood 8.2 mg/dL (8.5-10.1); Chloride, Blood 104.0 mmol/L (98-108); Creatinine, Blood 0.79 mg/dL (0.60-1.20); Globulin, Blood 4.6 g/dL (2.2-4.0); Glucose, Blood 168.0 mg/dL (70-99); Potassium, Blood 3.8 mmol/L (3.5-5.5); Sodium, Blood 135.0 mmol/L (136-145); Total Protein, Blood 6.3 g/dL (6.4-8.2)
[2025-02-23 13:21] LABS: MYELOPEROXIDASE (MPO) AB,IGG 0 AU/mL (0-19); SERINE PROTEINASE 3 PR3 AB,IGG 1 AU/mL (0-19)
[2025-02-23 14:57] VITALS: BP 113/85
--- NOTE | 2025-02-23 16:43 | NUR ---
SHIFT SUMMARY NO ACUTE CHANGES, A/Ox4, ABLE TO MAKE NEEDS KNOWN. SBA WITH FWW TO CHAIR AND BSC. BM TODAY. HUGO REMOVED AND PT URINATING WITHOUT DIFFICULTY. BARRIUM SWALLOW EVAL COMPLETED. TREATED FOR PAIN PER EMAR. ON RA MAJORITY OF DAY SATING 91-95%, TOWARDS END OF SHIFT PT SATING 86-88% - PT PLACED ON 2 L/MIN VIA NC AND SATING 90-92% ON CONTINUOUS PULSE OX. GOOD APPETITE. CURRENTLY RESTING IN BED WITH BED IN LOWEST POSITION AND CALL LIGHT WITHIN REACH.
[2025-02-23 19:34] VITALS: BP 115/76
[2025-02-24 03:25] VITALS: BP 128/94
--- NOTE | 2025-02-24 04:35 | NUR ---
SHIFT SUMMARY 70 YR M ADMITTED ON 02/06/25. FULL CODE. PT EXPRESSES THAT HE IS VERY MOTIVATED TO GO HOME TODAY. HE IS EXCITED ABOUT HIS PROGRESS WITH PT AND IS NOW AMBULATING TO THE BATHROOM. HE IS ALSO WORKING ON WEANING HIMSELF OFF OF OXYGEN BY TAKING HIS NASAL CANULA OFF AND ONLY PUTTING IT BACK ON WHEN HIS CONT BIOX STARTS TO BEEP. HE WENT MOST OF THE NIGHT W/O THE O2. HE WAS MEDICATED TWICE THIS SHIFT FOR PAIN. NO OTHER CHANGES TO REPORT. BED IN LOW POSITION AND CALL LIGHT IN REACH.
[2025-02-24 06:32] LABS: BASOPHILS ABSOLUTE AUTO 0.02 K/mm3 (0.00-0.23); BASOPHILS PERCENT AUTO 0 % (0-2); EOSINOPHILS ABSOLUTE AUTO 0.05 K/mm3 (0.00-0.68); EOSINOPHILS PERCENT AUTO 1 % (0-6); Hematocrit 23.2 % (37.0-53.0); Hemoglobin 7.5 g/dL (13.5-17.5); IMMATURE GRAN ABSOLUTE AUTO 0.11 K/mm3 (0.00-0.10); IMMATURE GRAN PERCENT AUTO 1 % (0-1); LYMPHOCYTES ABSOLUTE AUTO 1.61 K/mm3 (0.84-5.20); LYMPHOCYTES PERCENT AUTO 16 % (21-46); MONOCYTES ABSOLUTE AUTO 0.81 K/mm3 (0.16-1.47); MONOCYTES PERCENT AUTO 8 % (4-13); Mean Corpuscular HGB Conc 32.3 g/dL (31.5-36.5); Mean Corpuscular Volume 95 fL (80-100); NEUTROPHILS ABSOLUTE AUTO 7.23 K/mm3 (1.96-9.15); NEUTROPHILS PERCENT AUTO 74 % (41-73); NRBC ABSOLUTE 0.00 K/mm3 (0.00-0.02); NRBC Auto 0.0 /100 WBC (0.0-0.2); Platelet Count 518 K/mm3 (150-400); RDW Coefficient Variation 17.7 % (11.7-14.2); RDW Standard Deviation 59.2 fL (35.1-46.3)
[2025-02-24 06:55] LABS: Anion Gap 8.0 mmol/L (3-11); Blood Urea Nitrogen 23.0 mg/dL (8-24); CO2, Blood 28.0 mmol/L (21-32); Calcium, Blood 8.1 mg/dL (8.5-10.1); Chloride, Blood 105.0 mmol/L (98-108); Creatinine, Blood 0.9 mg/dL (0.60-1.20); Glucose, Blood 178.0 mg/dL (70-99); Potassium, Blood 3.9 mmol/L (3.5-5.5); Sodium, Blood 137.0 mmol/L (136-145)
[2025-02-24 07:49] VITALS: BP 111/79
[2025-02-24] MEDS ORDERED: INSULIN GL300 UNIT/1 SC (13:49)
[2025-02-24] MEDS ORDERED: METO100 PO (13:50)
[2025-02-24] MEDS ORDERED: LIDO700A20 TOP (13:50)
[2025-02-24] MEDS ORDERED: OMEP20ER PO (13:51)
[2025-02-24] MEDS ORDERED: Prednisone10 MG PO (13:51)
[2025-02-24] MEDS ORDERED: VISBIOME 112.51 EACH PO (13:52)
[2025-02-24] MEDS ORDERED: PRED5 PO (13:53)
[2025-02-24] MEDS ORDERED: AMOCLA875 PO (13:53)
[2025-02-24] MEDS ORDERED: SULTRIDS PO (13:53)
[2025-02-24] MEDS ORDERED: PRED20 PO (15:00)
--- NOTE | 2025-02-24 15:53 | NUR ---
PT WAS DISCHARGED PER MD INSTRUCTIONS. ALL PIVS REMOVED. PT HAS NO QUESTIONS OR COCNERNS. INFORMATION PACKET AND D/C PACKET IN HAND
== END 2025-02-24 15:46 | disposition home health service (06) | DRG 871 ==
LOC: ER 16:52 → PCU 19:09 → ICUE 19:09 → MEDS 19:09 → ERHOLD 19:09 → MEDS 20:57 → ICUE 20:57 → PCU 02-09 15:35 → MEDS 02-16 18:13
PROVIDERS: Emergency Medicine; Family Medicine; Hospitalist; Internal Medicine; Nurse Practitioner Acute Care; Pharmacist; Student in an Organized Health Care Education/Training Program; ADMIT Internal Medicine
PROC: 3E03329 Introduction of Other Anti-infective into Peripheral Vein, Percutaneous Approach (ICD-10-PCS; principal; 2025-02-06)
PROC: 3E033XZ Introduction of Vasopressor into Peripheral Vein, Percutaneous Approach (ICD-10-PCS; 2025-02-06)
PROC: 5A0935A Assistance with Respiratory Ventilation, Less than 24 Consecutive Hours, High Flow/Velocity Cannula (ICD-10-PCS; 2025-02-07)
PROC: 0DB78ZX Excision of Stomach, Pylorus, Via Natural or Artificial Opening Endoscopic, Diagnostic (ICD-10-PCS; 2025-02-14)
PROC: 30233N1 Transfusion of Nonautologous Red Blood Cells into Peripheral Vein, Percutaneous Approach (ICD-10-PCS; 2025-02-14)
DX: A40.3 Sepsis due to Streptococcus pneumoniae (principal); J13 Pneumonia due to Streptococcus pneumoniae; J96.01 Acute respiratory failure with hypoxia; J96.02 Acute respiratory failure with hypercapnia; K26.4 Chronic or unspecified duodenal ulcer with hemorrhage; R65.20 Severe sepsis without septic shock; N17.9 Acute kidney failure, unspecified; E87.1 Hypo-osmolality and hyponatremia; E87.21 Acute metabolic acidosis; K25.9 Gastric ulcer, unspecified as acute or chronic, without hemorrhage or perforation; I12.9 Hypertensive chronic kidney disease with stage 1 through stage 4 chronic kidney disease, or unspecified chronic kidney disease; M06.9 Rheumatoid arthritis, unspecified; I48.0 Paroxysmal atrial fibrillation; M10.9 Gout, unspecified; M19.90 Unspecified osteoarthritis, unspecified site; E78.5 Hyperlipidemia, unspecified; K82.8 Other specified diseases of gallbladder; E86.0 Dehydration; E11.22 Type 2 diabetes mellitus with diabetic chronic kidney disease; D63.1 Anemia in chronic kidney disease; N18.2 Chronic kidney disease, stage 2 (mild); F12.20 Cannabis dependence, uncomplicated; Z96.653 Presence of artificial knee joint, bilateral; Z98.890 Other specified postprocedural states; Z87.891 Personal history of nicotine dependence; Z79.4 Long term (current) use of insulin; Z79.899 Other long term (current) drug therapy; Z86.14 Personal history of Methicillin resistant Staphylococcus aureus infection; Z87.81 Personal history of (healed) traumatic fracture; Z85.820 Personal history of malignant melanoma of skin
CPT/HCPCS: 0202U; 36415; 36430; 71045; 71260; 73000; 74230; 76705; 77075; 80048; 80053; 80074; 80202; 82272; 82550; 82607; 82728; 82746; 82803; 82947; 82977; 83036; 83516; 83540; 83550; 83605; 83690; 83735; 83880; 84145; 84484; 84550; 85014; 85018; 85025; 85651; 86038; 86141; 86200; 86430; 86431; 86480; 86850; 86900; 86901; 86923; 87040; 87070; 87077; 87106; 87147; 87184; 87186; 87205; 87389; 87637; 88305; 88342; 92526; 92610; 92611; 93005; 93010; 93971; 94640; 94664; 94667; 94668; 94760; 94761; 94762; 96361; 96365; 96368; 97110; 97112; 97116; 97161; 97165; 97530; 99285-25; A9270; C1751; J0456; J0696; J1171; J1650; J1720; J1815; J1885; J1938; J2003; J2371; J2470; J2543; J2704; J3010; J3373; J7030; J7040; J7050; J7120; J7512; P9016; Q9967

== ENCOUNTER 2025-02-25 11:20 | Inpatient (IN) | payer MEDICARE ==
[~2025-02-25] VITALS: Ht 182.9 cm; Wt 86.4 kg
[~2025-02-25 11:20] MED LIST changes: +AMOCLA875 PO; +INSULIN GL300 UNIT/1 SC; +LIDO700A20 TOP; +METO100 PO; +OMEP20ER PO; +PRED20 PO; +PRED5 PO; +Prednisone10 MG PO; +SULTRIDS PO; +VISBIOME 112.51 EACH PO
[2025-02-25 12:09] LABS: BASOPHILS ABSOLUTE AUTO 0.04 K/mm3 (0.00-0.23); BASOPHILS PERCENT AUTO 0 % (0-2); EOSINOPHILS ABSOLUTE AUTO 0.44 K/mm3 (0.00-0.68); EOSINOPHILS PERCENT AUTO 4 % (0-6); Hematocrit 27.2 % (37.0-53.0); Hemoglobin 8.7 g/dL (13.5-17.5); IMMATURE GRAN ABSOLUTE AUTO 0.22 K/mm3 (0.00-0.10); IMMATURE GRAN PERCENT AUTO 2 % (0-1); LYMPHOCYTES ABSOLUTE AUTO 1.87 K/mm3 (0.84-5.20); LYMPHOCYTES PERCENT AUTO 16 % (21-46); MONOCYTES ABSOLUTE AUTO 0.89 K/mm3 (0.16-1.47); MONOCYTES PERCENT AUTO 7 % (4-13); Mean Corpuscular HGB Conc 32.0 g/dL (31.5-36.5); Mean Corpuscular Volume 97 fL (80-100); NEUTROPHILS ABSOLUTE AUTO 8.60 K/mm3 (1.96-9.15); NEUTROPHILS PERCENT AUTO 71 % (41-73); NRBC ABSOLUTE 0.02 K/mm3 (0.00-0.02); NRBC Auto 0.2 /100 WBC (0.0-0.2); Platelet Count 578 K/mm3 (150-400); RDW Coefficient Variation 18.6 % (11.7-14.2); RDW Standard Deviation 60.2 fL (35.1-46.3)
[2025-02-25 12:24] LABS: Prothrombin Time Results 11.7 Sec (9.7-11.5)
[2025-02-25 12:33] LABS: Alanine Aminotransfer (ALT/SGP 76.0 U/L (12-78); Albumin, Blood 1.9 g/dL (3.4-5.0); Albumin/Globulin Ratio 0.4 (0.8-1.8); Anion Gap 9.0 mmol/L (3-11); Aspartate Aminotrans (AST/SGOT 22.0 U/L (12-37); Bilirubin, Total 0.3 mg/dL (0.1-1.0); Blood Urea Nitrogen 22.0 mg/dL (8-24); CO2, Blood 28.0 mmol/L (21-32); Calcium, Blood 8.3 mg/dL (8.5-10.1); Chloride, Blood 105.0 mmol/L (98-108); Creatinine, Blood 0.73 mg/dL (0.60-1.20); Globulin, Blood 4.4 g/dL (2.2-4.0); Glucose, Blood 144.0 mg/dL (70-99); Magnesium, Blood 1.9 mg/dL (1.6-2.4); Potassium, Blood 3.4 mmol/L (3.5-5.5); Sodium, Blood 139.0 mmol/L (136-145); Total Protein, Blood 6.3 g/dL (6.4-8.2)
[2025-02-25] MEDS ORDERED: Piperacillin/Tazobactam Sod 3.375 GM in NS 100 ML IV ONE (13:40)
[2025-02-25] MEDS ORDERED: Diltiazem HCl 5 MG / ML 5ML Vial IV ONE (13:40)
[2025-02-25] MEDS ORDERED: Vancomycin (Pharmacy Consult) IV PRN (13:40)
[2025-02-25] MEDS ORDERED: Ondansetron HCl 2 MG / ML 2ML Vial IV PRN (15:15)
[2025-02-25] MEDS ORDERED: Magnesium Hydroxide Conc 10 ML UDC PO PRN (15:15)
[2025-02-25] MEDS ORDERED: Metoprolol Tartrate 1 MG/ML 5 ML VIAL IV PRN (17:10)
[2025-02-25 17:28] VITALS: BP 127/89
[2025-02-25] MEDS ORDERED: Furosemide 10 MG / ML 2ML Vial IV SCH (18:00)
[2025-02-25] MEDS ORDERED: Insulin Glargine,Hum.Rec.Anlog 100 UNIT/ML 3MLSYR SC SCH (18:00)
--- NOTE | 2025-02-25 18:34 | NUR ---
PT ARRIVED IN THE ROOM FROM [facility] VIA GURNEY ABLE TO STAND AND AMBULATE STRAIGHT TO THE BATHROOM VIA WALKER. PT REPORTS BOUTS OF DIARRHEA, PT HAD A BM APPEARS FORMED/SOFT AND NORMAL BROWN IN COLOR. CARDIZEM GTT WAS OFF UPON ARRIVAL HRR REMAIEND IN THE 70-90'S, METOPROLOL PO 5OMG TAR WAS GIVEN IN THE ER. PT WAS C/O PAIN ON THE WRIST AND ANKLES DUE TO ARTHIRITS, PAIN MEDS GIVEN. PT CURRENTLY ON 2L OF O2, VITALS HRR AFLUTTER 70'S, SBP 120'S, SATS ABOVBE 95% ON 2L OF O2, AFEBRILE. PT NOW EATING DINNER. CALL LIGHTS IN REACH [facility]
[2025-02-25 20:02] VITALS: BP 121/90
[2025-02-25 23:23] VITALS: BP 117/92
[2025-02-26 03:40] VITALS: BP 136/84
[2025-02-26 04:00] VITALS: BP 133/85
[2025-02-26 04:21] LABS: BASOPHILS ABSOLUTE AUTO 0.06 K/mm3 (0.00-0.23); BASOPHILS PERCENT AUTO 1 % (0-2); EOSINOPHILS ABSOLUTE AUTO 0.60 K/mm3 (0.00-0.68); EOSINOPHILS PERCENT AUTO 6 % (0-6); Hematocrit 30.1 % (37.0-53.0); Hemoglobin 9.5 g/dL (13.5-17.5); IMMATURE GRAN ABSOLUTE AUTO 0.21 K/mm3 (0.00-0.10); IMMATURE GRAN PERCENT AUTO 2 % (0-1); LYMPHOCYTES ABSOLUTE AUTO 1.87 K/mm3 (0.84-5.20); LYMPHOCYTES PERCENT AUTO 19 % (21-46); MONOCYTES ABSOLUTE AUTO 0.85 K/mm3 (0.16-1.47); MONOCYTES PERCENT AUTO 9 % (4-13); Mean Corpuscular HGB Conc 31.6 g/dL (31.5-36.5); Mean Corpuscular Volume 97 fL (80-100); NEUTROPHILS ABSOLUTE AUTO 6.17 K/mm3 (1.96-9.15); NEUTROPHILS PERCENT AUTO 63 % (41-73); NRBC ABSOLUTE 0.00 K/mm3 (0.00-0.02); NRBC Auto 0.0 /100 WBC (0.0-0.2); Platelet Count 552 K/mm3 (150-400); RDW Coefficient Variation 18.7 % (11.7-14.2); RDW Standard Deviation 61.8 fL (35.1-46.3)
--- NOTE | 2025-02-26 04:35 | NUR ---
SHIFT SUMMARY. SHIFT HAS BEEN UNREMARKABLE. PT AOX4, PLEASANT, COOPERATIVE, ABLE TO MAKE NEEDS KNOWN. HAS BEEN ABLE TO REST COMFORTABLY THROUGHOUT SHIFT. VITALS HAVE REMAINED STABLE. CONTINUES TO RUN AFLUTTER ON TELE, ONE INSTANCE THIS MORNING OF TACHYCARDIA UP TO THE 140s. BRIEF BEFORE COMING BACK DOWN TO THE 80s-100s RANGE. PT DENIED ANY ASSOCIATED SYMPTOMS. HAS MAINTAINED ADEQUATE SATURATION ON 1-2 L O2 VIA NC THROUGHOUT SHIFT. HAS DENIED PAIN THROUGHOUT SHIFT. BED LOCKED IN LOWEST POSITION. CALL LIGHT LEFT WITHIN REACH. CONTINUING TO MONITOR.
[2025-02-26 04:46] LABS: Anion Gap 7.0 mmol/L (3-11); Blood Urea Nitrogen 20.0 mg/dL (8-24); CO2, Blood 29.0 mmol/L (21-32); Calcium, Blood 8.0 mg/dL (8.5-10.1); Chloride, Blood 106.0 mmol/L (98-108); Creatinine, Blood 0.74 mg/dL (0.60-1.20); Glucose, Blood 69.0 mg/dL (70-99); Magnesium, Blood 1.9 mg/dL (1.6-2.4); Potassium, Blood 3.8 mmol/L (3.5-5.5); Sodium, Blood 138.0 mmol/L (136-145)
[2025-02-26] MEDS ORDERED: Insulin Human Lispro 100 Units/ML 3ML Syringe SC SCH (07:30)
[2025-02-26 07:48] VITALS: BP 109/85
[2025-02-26] MEDS ORDERED: Furosemide 10 MG / ML 2ML Vial IV SCH (09:00)
[2025-02-26] MEDS ORDERED: Enoxaparin 40 MG/0.4 ML SYR SC SCH (09:00)
[2025-02-26] MEDS ORDERED: Trimethoprim/Sulfamethoxazole DS Tab PO SCH (11:00)
[2025-02-26 12:02] VITALS: BP 116/78
--- NOTE | 2025-02-26 15:04 | NUR ---
TRANSFER OF CARE TO [facility] AND LUIS EDUARDO RN. SHIFT SUMMARY; PT WAS PLANNED TO DISCHARGE TODAY HEART RATE WAS STABLE THIS MORNING AT THE BEGINNING OF THE SHIFT THEN HRR TACHED UP TO 140'S WITH EXERTION WHEN PT WENT TOT HE BATHROOM, EATING AND WORKED WITH PHYSICAL THERAPIST. MADE AWARE AND ORDERED ADDITIONAL METOPROLOL. PT REPORTS PALPITAIONS AND SOB. PT REMAINED ON 2L OF O2 VIA NC, SATS KEPT ABOVE 90%, SBP 120'S, AFEBRILE. PT WAS GIEVN PAIN MEDS FOR GOUT, PT WAS INFORMED THAT DISCHARGE IS NOT HAPPENING TODAY PT WAS NOT HAPPY BUT IS AGREEABLE WITH THE PLAN, AND WAS GIVEN MORE INFORMATION ABOUT MANAGING AFIB. PT WAS RECEPTIVE. HOME O2 EVAL ORDERED TO BE DONE IN AM PRIOR TO DC. NO OTHER ISSUES ENCOUNTERED WILL MONITOR
[2025-02-26 15:25] VITALS: BP 112/81
--- NOTE | 2025-02-26 15:32 | NUR ---
Spiritual Care Visit. Pt. is awake in bed and cautiously welcomes my visit. Facilitate a life review and in the process rapoprt is established and the Pt. displayed evidence of trust and engagement. 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 Listened with great interest and a supportive presnece. Before the visit ended the Pt. allowed this chief executive to pray for him. The Pt. vebralized genuine gratitude for the spiritual life visit and that it was uplifting to him.
--- NOTE | 2025-02-26 17:36 | NUR ---
SHIFT SUMMARY: ASSUMED CARE OF PT AT APPROX 1500 TODAY. PT HAS BEEN A/O X4, ABLE TO MAKE NEEDS KNOWN. PT IS ON 2L O2, SATS >90. PT REPORTS NO SOB/WHEEZING. PT ATRIAL FLUTTER 100-110s. PT RECIEVED MEDICATIONS PER EMAR. PT LYING IN BED, CALL WITHIN REACH.
[2025-02-26 19:46] VITALS: BP 106/76
--- NOTE | 2025-02-26 21:02 | NUR ---
ASSUMPTION OF CARE PT A&O X4, CALM, COOPERATIVE TO CARE. HR IN THE 90'S-100'S, AFLUTTER. HE DENIES ANY CP/PRESSURE, NUMB/TINGLING, SBP STABLE. PT ON 2L VIA NC, HE DENIES ANY SOB AT THIS TIME. HE HAS EDEMA TO THE BLE, BUT HE DOES REPORT THEY FEEL MUCH BETTER AND HE HAS GREATER ROM. PT CBG THIS EVENING WAS 334. RESIDENT NOTIFIED, NO NEW ORDERS AT THE TIME, PER RESIDENT THEY WILL REVIEW. PT RESTING IN BED AT THIS TIME. CALL LIGHT IN REACH.
[2025-02-26] MEDS ORDERED: Insulin Human Lispro 100 Units/ML 3ML Syringe SC ONE (22:00)
[2025-02-27] VITALS (8 sets, daily range): BP systolic 102–135; BP diastolic 72–87
[2025-02-27 04:03] LABS: BASOPHILS ABSOLUTE AUTO 0.03 K/mm3 (0.00-0.23); BASOPHILS PERCENT AUTO 0 % (0-2); EOSINOPHILS ABSOLUTE AUTO 0.15 K/mm3 (0.00-0.68); EOSINOPHILS PERCENT AUTO 1 % (0-6); Hematocrit 28.8 % (37.0-53.0); Hemoglobin 9.3 g/dL (13.5-17.5); IMMATURE GRAN ABSOLUTE AUTO 0.34 K/mm3 (0.00-0.10); IMMATURE GRAN PERCENT AUTO 3 % (0-1); LYMPHOCYTES ABSOLUTE AUTO 1.85 K/mm3 (0.84-5.20); LYMPHOCYTES PERCENT AUTO 14 % (21-46); MONOCYTES ABSOLUTE AUTO 0.80 K/mm3 (0.16-1.47); MONOCYTES PERCENT AUTO 6 % (4-13); Mean Corpuscular HGB Conc 32.3 g/dL (31.5-36.5); Mean Corpuscular Volume 96 fL (80-100); NEUTROPHILS ABSOLUTE AUTO 9.67 K/mm3 (1.96-9.15); NEUTROPHILS PERCENT AUTO 75 % (41-73); NRBC ABSOLUTE 0.02 K/mm3 (0.00-0.02); NRBC Auto 0.2 /100 WBC (0.0-0.2); Platelet Count 611 K/mm3 (150-400); RDW Coefficient Variation 19.2 % (11.7-14.2); RDW Standard Deviation 63.3 fL (35.1-46.3)
[2025-02-27 04:29] LABS: Anion Gap 9.0 mmol/L (3-11); Blood Urea Nitrogen 33.0 mg/dL (8-24); CO2, Blood 25.0 mmol/L (21-32); Calcium, Blood 7.9 mg/dL (8.5-10.1); Chloride, Blood 107.0 mmol/L (98-108); Creatinine, Blood 1.13 mg/dL (0.60-1.20); Glucose, Blood 154.0 mg/dL (70-99); Magnesium, Blood 2.2 mg/dL (1.6-2.4); Potassium, Blood 4.1 mmol/L (3.5-5.5); Sodium, Blood 137.0 mmol/L (136-145)
--- NOTE | 2025-02-27 05:03 | NUR ---
SHIFT SUMMARY PT A&O X4, CALM, COOPERATIVE TO CARE. AFLUTTER, HR IN THE 70'S AT REST, 90'S TO LOW 100'S WHILE AWAKE AND EXERTING HIMSELF. HE DENIES ANY CP/PRESSURE, NUMB/TINGLING, SBP IN THE 100'S, MAP >65. SPO2 >92% ON 2L VIA NC, PT WEARS 2L AT BASELINE SINCE LAST ADMISSION. HE DENIES ANY SOB. PT WAS ABLE TO COUGH UP A COPIOUS AMOUNT OF PHLEGM T/O NIGHT AND REPORTS IMPROVEMENT IN BREATHING. PT GOT UP AND DID SOME [id number] EXERCISES AND LEG EXERCISES IN THE BED LAST NIGHT, HR AND O2 TOLERATED WELL. PT RESTING IN BED AT THIS TIME. CALL LIGHT IN REACH. WILL MONITOR PT AND REPORT TO ONCOMING RN.
--- NOTE | 2025-02-27 17:30 | NUR ---
SHIFT SUMMARY PT A&Ox4, CALLS AND COMMUNICATES NEEDS APPROPRIATELY. IND IN ROOM. BP STABLE, AFLUTTER 70-110's, DENIES CP/PRESSURE. SpO2> 90% RA, REPORTS INTERMITTENT SOB WITH ACTIVITY. INTERMITTENT COUGH. [facility] [place] DELIVERED HOME O2 TANK THIS SHIFT. CONTINENT OF URINE AND BOWEL, IND TO BATHROOM. MANAGED CHRONIC PAIN PER EMAR. PROVIDED MEDICATION EDUCATION AND EXPRESSED IMPORTANCE WITH MEDICATION COMPLIANCE UPON DISCHARGE. NO OTHER EVENTS, WILL REPORT TO ONCOMING RN.
--- NOTE | 2025-02-27 17:58 | NUR ---
TRANSFER TO MEDICAL 330 SEE PREVIOUS NOTE, NO ACUTE CHANGES. REPORT GIVEN TO MEDICAL FLOOR RN. PT TRANSFERED VIA WHEELCHAIR BY CLINICAL STAFF WITH ALL PT BELONGINGS AT APPROXIMATELY 1800.
--- NOTE | 2025-02-27 18:11 | NUR ---
TRANSFER NOTE PATIENT ARRIVED AT 1804, PATIENT A&OX4, NO POINTS OF DISTRESS NOTED. ORIENTED TO HIS ROOM, CALL LIGHT WITHIN REACH, AND HE IS ABLE TO MAKE NEEDS KNOWN.
[2025-02-28 03:41] VITALS: BP 121/85
[2025-02-28 06:52] LABS: BASOPHILS ABSOLUTE AUTO 0.06 K/mm3 (0.00-0.23); BASOPHILS PERCENT AUTO 0 % (0-2); EOSINOPHILS ABSOLUTE AUTO 0.21 K/mm3 (0.00-0.68); EOSINOPHILS PERCENT AUTO 1 % (0-6); Hematocrit 33.3 % (37.0-53.0); Hemoglobin 10.8 g/dL (13.5-17.5); IMMATURE GRAN ABSOLUTE AUTO 0.60 K/mm3 (0.00-0.10); IMMATURE GRAN PERCENT AUTO 4 % (0-1); LYMPHOCYTES ABSOLUTE AUTO 2.68 K/mm3 (0.84-5.20); LYMPHOCYTES PERCENT AUTO 17 % (21-46); MONOCYTES ABSOLUTE AUTO 0.89 K/mm3 (0.16-1.47); MONOCYTES PERCENT AUTO 6 % (4-13); Mean Corpuscular HGB Conc 32.4 g/dL (31.5-36.5); Mean Corpuscular Volume 97 fL (80-100); NEUTROPHILS ABSOLUTE AUTO 11.02 K/mm3 (1.96-9.15); NEUTROPHILS PERCENT AUTO 71 % (41-73); NRBC ABSOLUTE 0.00 K/mm3 (0.00-0.02); NRBC Auto 0.0 /100 WBC (0.0-0.2); Platelet Count 638 K/mm3 (150-400); RDW Coefficient Variation 19.5 % (11.7-14.2); RDW Standard Deviation 65.9 fL (35.1-46.3)
[2025-02-28 07:09] VITALS: BP 113/76
[2025-02-28 07:12] LABS: Anion Gap 10.0 mmol/L (3-11); Blood Urea Nitrogen 35.0 mg/dL (8-24); CO2, Blood 25.0 mmol/L (21-32); Calcium, Blood 8.3 mg/dL (8.5-10.1); Chloride, Blood 108.0 mmol/L (98-108); Creatinine, Blood 1.05 mg/dL (0.60-1.20); Glucose, Blood 144.0 mg/dL (70-99); Magnesium, Blood 2.2 mg/dL (1.6-2.4); Potassium, Blood 4.1 mmol/L (3.5-5.5); Sodium, Blood 139.0 mmol/L (136-145)
[2025-02-28 11:32] VITALS: BP 101/66
[2025-02-28] MEDS ORDERED: BENZ100A PO (12:44)
[2025-02-28] MEDS ORDERED: FURO20 PO (12:45)
[2025-02-28] MEDS ORDERED: METF500C PO (13:30)
[2025-02-28] MEDS ORDERED: ENTRESTO 24 MG1 EAC2 PO (13:31)
[2025-02-28] MEDS ORDERED: JARDIANCE10 MG PO (13:40)
--- NOTE | 2025-02-28 14:20 | NUR ---
PT DISCHARGED AT 1405. PT AOX4 AND COOPERATIVE OF CARE. PT HAD EXTRA EDUCATION ON MEDICATIONS AND WHAT THEY ARE FOR. PT ALSO RECIEVED A MEDICATION WITH A WRITTEN DISCRIPTION OF MEDICATIONS FOR HIS OWN REFERENCE PROVIDED BY DR ALCALA. PAPWORK WAS REVIEWED AND EDUCATIONAL MATERIAL WAS SENT WITH PT. ALL PERSONAL BELONINGS WERE COLLECTED AND PERSONAL O2 TANK TAKEN HOME. PT ESCORTED OUT VIA WHEELCHAIR. PT CURRENTLY RA AND INDEPENDENT IN ROOM NO DISTRESS NOTED.
--- NOTE | 2025-02-28 14:24 | NUR ---
THIS HAT MAKER HAS REVIEWED AND AGREES WITH ALL NOTES AND ASSESSMENT BY MIGUEL MYERS.
--- NOTE | 2025-03-01 15:37 | NUR ---
PATIENT RETURNED WITH MEDICATION CONCERNS PATIENT UNABLE TO FILL JARDIANCE OR ELIQUIS DUE TO PRIOR AUTH REQUIREMENT. PATIENT UNSURE IF HE WAS ABLE TO FILL ENTRESTO. CASE MANAGEMENT ABLE TO PROVIDE ENTRESTO SAMPLE TO PATIENT. CALL TO DR. ALCALA TO INFORM HIM OF ISSUES. NEW PRESCRIPTION FOR XARELTO GIVEN AND FREE 30 DAY TRIAL COUPON PRINTED OUT FOR PATIENT.
== END 2025-02-28 14:05 | disposition home or self-care (01) | DRG 291 ==
LOC: ER 11:20 → PCU 11:21 → MEDS 02-27 18:02
PROVIDERS: Student in an Organized Health Care Education/Training Program; ADMIT Internal Medicine
DX: I11.0 Hypertensive heart disease with heart failure (principal); I50.23 Acute on chronic systolic (congestive) heart failure; J96.21 Acute and chronic respiratory failure with hypoxia; J18.9 Pneumonia, unspecified organism; Q21.12 Patent foramen ovale; I48.92 Unspecified atrial flutter; I48.0 Paroxysmal atrial fibrillation; E11.9 Type 2 diabetes mellitus without complications; E87.6 Hypokalemia; M06.9 Rheumatoid arthritis, unspecified; Z60.2 Problems related to living alone; Z79.4 Long term (current) use of insulin; Z79.52 Long term (current) use of systemic steroids; Z79.1 Long term (current) use of non-steroidal anti-inflammatories (NSAID); Z87.891 Personal history of nicotine dependence
CPT/HCPCS: 36415; 71046; 80048; 80053; 82947; 83605; 83735; 83880; 84145; 85025; 85610; 85730; 87040; 93005; 93010; 93306; 94762; 96365; 96366; 96367; 96375; 97110; 97161; 97530; 99285-25; A9270; G0378; J1938; J2543; J3373; J7040; J7050; J7512

== ENCOUNTER 2025-03-09 14:11 | Inpatient (IN) | payer MEDICARE ==
[~2025-03-09] VITALS: Ht 182.9 cm; Wt 76.1 kg
[~2025-03-09 14:11] MED LIST changes: +BENZ100A PO; +ENTRESTO 24 MG1 EAC2 PO; +FURO20 PO; +JARDIANCE10 MG PO; +METF500C PO
[2025-03-09] MEDS ORDERED: NS 1,000 ML IV ONE (14:35)
[2025-03-09] MEDS ORDERED: NS 500 ML IV SCH (14:35)
[2025-03-09 14:37] LABS: BASOPHILS ABSOLUTE AUTO 0.04 K/mm3 (0.00-0.23); BASOPHILS PERCENT AUTO 0 % (0-2); EOSINOPHILS ABSOLUTE AUTO 0.01 K/mm3 (0.00-0.68); EOSINOPHILS PERCENT AUTO 0 % (0-6); Hematocrit 45.5 % (37.0-53.0); Hemoglobin 14.5 g/dL (13.5-17.5); IMMATURE GRAN ABSOLUTE AUTO 0.22 K/mm3 (0.00-0.10); IMMATURE GRAN PERCENT AUTO 1 % (0-1); LYMPHOCYTES ABSOLUTE AUTO 1.18 K/mm3 (0.84-5.20); LYMPHOCYTES PERCENT AUTO 7 % (21-46); MONOCYTES ABSOLUTE AUTO 0.51 K/mm3 (0.16-1.47); MONOCYTES PERCENT AUTO 3 % (4-13); Mean Corpuscular HGB Conc 31.9 g/dL (31.5-36.5); Mean Corpuscular Volume 99 fL (80-100); NEUTROPHILS ABSOLUTE AUTO 14.80 K/mm3 (1.96-9.15); NEUTROPHILS PERCENT AUTO 88 % (41-73); NRBC ABSOLUTE 0.00 K/mm3 (0.00-0.02); NRBC Auto 0.0 /100 WBC (0.0-0.2); Platelet Count 379 K/mm3 (150-400); RDW Coefficient Variation 20.6 % (11.7-14.2); RDW Standard Deviation 74.6 fL (35.1-46.3)
[2025-03-09 15:23] LABS: Alanine Aminotransfer (ALT/SGP 29.0 U/L (12-78); Albumin, Blood 3.0 g/dL (3.4-5.0); Albumin/Globulin Ratio 0.7 (0.8-1.8); Anion Gap 10.0 mmol/L (3-11); Aspartate Aminotrans (AST/SGOT 13.0 U/L (12-37); Bilirubin, Total 0.5 mg/dL (0.1-1.0); Blood Urea Nitrogen 37.0 mg/dL (8-24); CO2, Blood 25.0 mmol/L (21-32); Calcium, Blood 8.9 mg/dL (8.5-10.1); Chloride, Blood 105.0 mmol/L (98-108); Creatinine, Blood 0.94 mg/dL (0.60-1.20); Globulin, Blood 4.1 g/dL (2.2-4.0); Glucose, Blood 212.0 mg/dL (70-99); Magnesium, Blood 2.2 mg/dL (1.6-2.4); Potassium, Blood 4.7 mmol/L (3.5-5.5); Sodium, Blood 135.0 mmol/L (136-145); Total Protein, Blood 7.1 g/dL (6.4-8.2)
[2025-03-09] MEDS ORDERED: Vancomycin (Pharmacy Consult) IV PRN (15:55)
[2025-03-09] MEDS ORDERED: CefTRIAXone Sodium 1,000 MG in NS 50 ML IV ONE (15:55)
[2025-03-09] MEDS ORDERED: NS 1,000 ML IV SCH ×2 (16:25→18:00)
[2025-03-09] MEDS ORDERED: Metoprolol Tartrate 1 MG/ML 5 ML VIAL IV PRN (18:00)
[2025-03-09] MEDS ORDERED: Ondansetron HCl 2 MG / ML 2ML Vial IV PRN (18:00)
[2025-03-09 19:36] LABS: Source, Urine Clean Catch
[2025-03-09 19:40] LABS: Bilirubin, Urine Neg (Neg); Color, Urine Yellow (P-Yellow); Glucose Qualitative, Urine 2+ (Neg); Ketones, Urine Neg (Neg); Leukocyte Esterase, Urine 1+ (Neg); Protein, Urine 2+ (Neg); Specific Gravity, Urine 1.015 (1.003-1.022); Urobilinogen, Urine NORM (Normal)
[2025-03-09 19:49] LABS: Red Blood Cells, Urine 0-2 /hpf (0-2)
[2025-03-09] MEDS ORDERED: Insulin Human Lispro 100 Units/ML 3ML Syringe SC SCH (21:00)
[2025-03-09] MEDS ORDERED: Trimethoprim/Sulfamethoxazole DS Tab PO SCH (21:00)
[2025-03-09] MEDS ORDERED: Lactobacil 2-S.Thermo-Bifido 1 1 Cap PO SCH (21:00)
[2025-03-10] VITALS (7 sets, daily range): BP systolic 101–111; BP diastolic 71–92
[2025-03-10 04:42] LABS: BASOPHILS ABSOLUTE AUTO 0.03 K/mm3 (0.00-0.23); BASOPHILS PERCENT AUTO 0 % (0-2); EOSINOPHILS ABSOLUTE AUTO 0.15 K/mm3 (0.00-0.68); EOSINOPHILS PERCENT AUTO 1 % (0-6); Hematocrit 38.1 % (37.0-53.0); Hemoglobin 12.2 g/dL (13.5-17.5); IMMATURE GRAN ABSOLUTE AUTO 0.21 K/mm3 (0.00-0.10); IMMATURE GRAN PERCENT AUTO 2 % (0-1); LYMPHOCYTES ABSOLUTE AUTO 2.94 K/mm3 (0.84-5.20); LYMPHOCYTES PERCENT AUTO 21 % (21-46); MONOCYTES ABSOLUTE AUTO 0.89 K/mm3 (0.16-1.47); MONOCYTES PERCENT AUTO 6 % (4-13); Mean Corpuscular HGB Conc 32.0 g/dL (31.5-36.5); Mean Corpuscular Volume 98 fL (80-100); NEUTROPHILS ABSOLUTE AUTO 10.07 K/mm3 (1.96-9.15); NEUTROPHILS PERCENT AUTO 71 % (41-73); NRBC ABSOLUTE 0.00 K/mm3 (0.00-0.02); NRBC Auto 0.0 /100 WBC (0.0-0.2); Platelet Count 280 K/mm3 (150-400); RDW Coefficient Variation 20.4 % (11.7-14.2); RDW Standard Deviation 73.9 fL (35.1-46.3)
[2025-03-10 05:06] LABS: Magnesium, Blood 1.9 mg/dL (1.6-2.4)
[2025-03-10 05:07] LABS: Alanine Aminotransfer (ALT/SGP 28.0 U/L (12-78); Albumin, Blood 2.5 g/dL (3.4-5.0); Albumin/Globulin Ratio 0.8 (0.8-1.8); Anion Gap 6.0 mmol/L (3-11); Aspartate Aminotrans (AST/SGOT 12.0 U/L (12-37); Bilirubin, Total 0.4 mg/dL (0.1-1.0); Blood Urea Nitrogen 35.0 mg/dL (8-24); CO2, Blood 28.0 mmol/L (21-32); Calcium, Blood 7.8 mg/dL (8.5-10.1); Chloride, Blood 107.0 mmol/L (98-108); Creatinine, Blood 0.92 mg/dL (0.60-1.20); Globulin, Blood 3.3 g/dL (2.2-4.0); Glucose, Blood 107.0 mg/dL (70-99); Potassium, Blood 4.4 mmol/L (3.5-5.5); Sodium, Blood 137.0 mmol/L (136-145); Total Protein, Blood 5.8 g/dL (6.4-8.2)
--- NOTE | 2025-03-10 06:47 | NUR ---
SHIFT SUMMARY: PT ARRIVES TO PCU 6 FROM THE ER VIA GURNEY AROUND 0150. PT TRANSFERRED TO HOSPITAL BED SBA. PT ORIENTED TO ROOM AND CALL LIGHT. PT ARRIVES WITH HIS OWN CANE, AND OXYGEN TANK FROM HOME. PT IS A&OX4, COOPERATIVE WITH CARE. VSS ON RA. AFLUTTER 110'S-140'S, PRN 5MG IV LOPRESSOR ADMINISTERED ONCE. PT TOLERATING A CONS CARB DIET. INDEPENDENTLY VOIDING ADEQUATE AMOUNTS OF BILLY COLORED URINE IN URINAL AT BEDSIDE. NO BM THIS SHIFT. BED IN LOWEST POSITION, CALL LIGHT WITHIN REACH. DROPLET PRECAUTIONS INITIATED FOR HISTORY OF MRSA IN [place] WHILE HE WAS HERE IN JANUARY.
--- NOTE | 2025-03-10 10:53 | NUR ---
RN NOTE MR TRAVIS WAS RESTLESS AT CHANGE OF SHIFT, VOICED ANNOYANCE AT HAVING TELEMETRY, CONTINUOUS PULSE OX AND IV TUBING. EDUCATION AND REASSURANCE PROVIDED. WHEN HE STANDS HIS HEART RATE GOES TO [address] STEEL WAS AT HIS BEDSIDE WHEN HE STOOD THE SECOND TIME AND HEART RATE WAS 140. HEART RATE GOES BACK TO LOW 100S WHEN RESTING IN BED. ON ROOM AIR WITH PULSE OX MONITOR IN THE 90S. HE SAID HE USES 2L NC O2 WHEN HE WALKS AT HOME. MR TRAVIS SAID HE WAS AWAKE A LOT LAST NIGHT AND IS TRYING TO CATCH UP ON SOME SLEEP THIS MORNING.
--- NOTE | 2025-03-10 17:28 | NUR ---
Shift Summary Mr Ramirez is orientated x4. He was anxious at the beginning of the shift but has otherwise appeared calm. Heart rate up to 140 when he stands and walks, otherwise 100-110 at rest. He denies SOB, sats in the 90s on room air. Good UOP. IVF stopped. +diaphuretic. Offered a shower or bed bath but he has declined. He slept on and off throughout the shift after little sleep last night. Bed low, call light in reach.
[2025-03-11 03:49] VITALS: BP 118/95
[2025-03-11 04:16] LABS: BASOPHILS ABSOLUTE AUTO 0.03 K/mm3 (0.00-0.23); BASOPHILS PERCENT AUTO 0 % (0-2); EOSINOPHILS ABSOLUTE AUTO 0.06 K/mm3 (0.00-0.68); EOSINOPHILS PERCENT AUTO 0 % (0-6); Hematocrit 41.9 % (37.0-53.0); Hemoglobin 14.1 g/dL (13.5-17.5); IMMATURE GRAN ABSOLUTE AUTO 0.16 K/mm3 (0.00-0.10); IMMATURE GRAN PERCENT AUTO 1 % (0-1); LYMPHOCYTES ABSOLUTE AUTO 2.09 K/mm3 (0.84-5.20); LYMPHOCYTES PERCENT AUTO 13 % (21-46); MONOCYTES ABSOLUTE AUTO 0.95 K/mm3 (0.16-1.47); MONOCYTES PERCENT AUTO 6 % (4-13); Mean Corpuscular HGB Conc 33.7 g/dL (31.5-36.5); Mean Corpuscular Volume 96 fL (80-100); NEUTROPHILS ABSOLUTE AUTO 12.72 K/mm3 (1.96-9.15); NEUTROPHILS PERCENT AUTO 79 % (41-73); NRBC ABSOLUTE 0.00 K/mm3 (0.00-0.02); NRBC Auto 0.0 /100 WBC (0.0-0.2); Platelet Count 245 K/mm3 (150-400); RDW Coefficient Variation 20.0 % (11.7-14.2); RDW Standard Deviation 71.4 fL (35.1-46.3)
[2025-03-11 04:19] LABS: Anion Gap 12.0 mmol/L (3-11); Blood Urea Nitrogen 35.0 mg/dL (8-24); CO2, Blood 26.0 mmol/L (21-32); Calcium, Blood 8.5 mg/dL (8.5-10.1); Chloride, Blood 103.0 mmol/L (98-108); Creatinine, Blood 0.84 mg/dL (0.60-1.20); Glucose, Blood 124.0 mg/dL (70-99); Potassium, Blood 4.8 mmol/L (3.5-5.5); Sodium, Blood 136.0 mmol/L (136-145)
--- NOTE | 2025-03-11 05:59 | NUR ---
SHIFT SUMMARY PATIENT ALERT AND ORIENTED X4. WAS MEDICATED PER EMAR FOR PAIN. HAD NO COMPLAINTS OF SHORTNESS OF BREATH. ON ROOM AIR WITH SPO2 >90%. AT REST PATIENT'S HEART RATE WAS IN THE 80'S, IT INCREASES TO 120'S WITH ACTIVITY, BLOOD PRESSURE STABLE. WILL CONTINUE TO MONITOR. CALL LIGHT WITHIN REACH.
[2025-03-11 07:31] VITALS: BP 109/75
--- NOTE | 2025-03-11 08:55 | NUR ---
DR. STEEL TO ROOM TO DISCUSS POC. FOLLOW UP W/ CARIOLOGY DISCUSSED AFTER FOR DISCHARGE.
--- NOTE | 2025-03-11 09:33 | NUR ---
am note this rn assumed care at 0700. vital signs stable. tele aflutter 70s and patient heart rate increases with activity into 130s. patient is alert and oriented x4. neuro is intact. perrla. patient denies pain, chest pain/pressure or shortness of breath. patient lung sounds clear this am. see shift assessment for further detials. short in room at 0847 and discussed plan for possible discharge this afternoon pending how patients heart rate is with activity.
[2025-03-11 10:00] VITALS: BP 106/79
--- NOTE | 2025-03-11 10:04 | NUR ---
update patient got out of bed and while sitting at side of bed heart rate increased to 110s. once patient stood up heart rate increased to 120s and patient stating "feeling short of breath" and "light headed". patient sat back down in bed and then got up again and walked around in the room. patient heart rate with walking increased to 140s and then sustained in the 120-130s range with activity. once patient sitting back in bed for a few minutes heart rate returned to 90s. this rn retook blood pressure and monitored oxygen saturation. vital signs are stable. this rn called md hilario to notify, and md hilario placing orders for additional dose of metoprolol. see orders.
[2025-03-11] MEDS ORDERED: AMLO5 PO (10:37)
[2025-03-11 11:41] VITALS: BP 107/76
--- NOTE | 2025-03-11 12:13 | NUR ---
UPDATE this rn in room with patient and patient ambulating. while ambulating hert rate in 110s-120s. when patient sat back down heart rate touched into the 130s and then returned to 90s-110s. patient did not feel short of breath with this activity. this rn called md hilario and updated on how patient heart rate tolerated activity.
[2025-03-11 16:47] VITALS: BP 135/118
--- NOTE | 2025-03-11 17:16 | NUR ---
shift summary see previous notes. patient heart rate with activity into the 120s and occasionally hits 130s and then when resting will drop back into the 90s. no acute changes this shift. plan remains up to date and to discharge home tomorrow if heart rate remains stable.
[2025-03-11 19:52] VITALS: BP 101/70
[2025-03-12 00:35] VITALS: BP 103/78
[2025-03-12 03:40] VITALS: BP 123/94
[2025-03-12 04:35] LABS: BASOPHILS ABSOLUTE AUTO 0.03 K/mm3 (0.00-0.23); BASOPHILS PERCENT AUTO 0 % (0-2); EOSINOPHILS ABSOLUTE AUTO 0.09 K/mm3 (0.00-0.68); EOSINOPHILS PERCENT AUTO 1 % (0-6); Hematocrit 38.8 % (37.0-53.0); Hemoglobin 13.2 g/dL (13.5-17.5); IMMATURE GRAN ABSOLUTE AUTO 0.13 K/mm3 (0.00-0.10); IMMATURE GRAN PERCENT AUTO 1 % (0-1); LYMPHOCYTES ABSOLUTE AUTO 2.24 K/mm3 (0.84-5.20); LYMPHOCYTES PERCENT AUTO 16 % (21-46); MONOCYTES ABSOLUTE AUTO 0.73 K/mm3 (0.16-1.47); MONOCYTES PERCENT AUTO 5 % (4-13); Mean Corpuscular HGB Conc 34.0 g/dL (31.5-36.5); Mean Corpuscular Volume 94 fL (80-100); NEUTROPHILS ABSOLUTE AUTO 10.51 K/mm3 (1.96-9.15); NEUTROPHILS PERCENT AUTO 77 % (41-73); NRBC ABSOLUTE 0.00 K/mm3 (0.00-0.02); NRBC Auto 0.0 /100 WBC (0.0-0.2); Platelet Count 242 K/mm3 (150-400); RDW Coefficient Variation 19.9 % (11.7-14.2); RDW Standard Deviation 69.0 fL (35.1-46.3)
[2025-03-12 04:58] LABS: Anion Gap 10.0 mmol/L (3-11); Blood Urea Nitrogen 40.0 mg/dL (8-24); CO2, Blood 22.0 mmol/L (21-32); Calcium, Blood 8.5 mg/dL (8.5-10.1); Chloride, Blood 106.0 mmol/L (98-108); Creatinine, Blood 0.9 mg/dL (0.60-1.20); Glucose, Blood 111.0 mg/dL (70-99); Potassium, Blood 4.5 mmol/L (3.5-5.5); Sodium, Blood 133.0 mmol/L (136-145)
--- NOTE | 2025-03-12 06:38 | NUR ---
SHIFT SUMMARY PATIENT ALERT AND ORIENTED X4. MEDICATED PER EMAR FOR PAIN. ON ROOM AIR WITH SPO2 >90%. VITAL SIGNS STABLE. NO ACUTE ISSUES NOTED OVERNIGHT. WILL CONTINUE TO MONITOR. CALL LIGHT WITHIN REACH.
[2025-03-12 07:26] VITALS: BP 111/82
--- NOTE | 2025-03-12 08:55 | NUR ---
am note this rn assumed care at 0700. vital signs stable. tele aflutter 90s with resting and with activity in emperatriz 120s and returns to 90s when sitting back down. patient is alert and oriented x4. patient is able to make needs known and uses call light appropriately. patient this morning expressing wanting to go home. pateint denies chest pain/pressure, pain, or shortness of breath. lung sounds clear. see shift assessment for further detials. short in to see patient at 0850 and plan for patient to discharge home today. patient agrees with this plan of care
[2025-03-12] MEDS ORDERED: ELIQUIS5 M2 PO (10:49)
[2025-03-12 11:32] VITALS: BP 107/76
--- NOTE | 2025-03-12 11:32 | NUR ---
discharge this rn went over discharge education, follow up appointments, and medications. this rn provied patient with printed handout of when to take medications and which medications are as needed and with the reason for why patient is taking each medication. patient verbalized understanding. patient verbalized appointment with pcp on saturday at 745. patient left with all belongigns and in no distress. vitals signs stable.
== END 2025-03-12 11:30 | disposition home health service (06) | DRG 308 ==
LOC: ER 14:11 → PCU 14:12 → ERHOLD 14:12 → PCU 14:12 → ER 14:12 → ERHOLD 03-10 01:41 → PCU 03-10 01:41
PROVIDERS: Nurse Practitioner Acute Care; Physician Assistant; Student in an Organized Health Care Education/Training Program; ADMIT Student in an Organized Health Care Education/Training Program
DX: I48.92 Unspecified atrial flutter (principal); J18.9 Pneumonia, unspecified organism; I13.0 Hypertensive heart and chronic kidney disease with heart failure and stage 1 through stage 4 chronic kidney disease, or unspecified chronic kidney disease; I50.22 Chronic systolic (congestive) heart failure; J96.10 Chronic respiratory failure, unspecified whether with hypoxia or hypercapnia; I95.1 Orthostatic hypotension; I48.0 Paroxysmal atrial fibrillation; M10.9 Gout, unspecified; K21.9 Gastro-esophageal reflux disease without esophagitis; N18.2 Chronic kidney disease, stage 2 (mild); Z96.611 Presence of right artificial shoulder joint; M20.41 Other hammer toe(s) (acquired), right foot; F17.200 Nicotine dependence, unspecified, uncomplicated; E86.0 Dehydration; E11.22 Type 2 diabetes mellitus with diabetic chronic kidney disease; M19.90 Unspecified osteoarthritis, unspecified site; Z79.891 Long term (current) use of opiate analgesic; Z98.890 Other specified postprocedural states; Z79.899 Other long term (current) drug therapy; Z79.2 Long term (current) use of antibiotics; Z79.52 Long term (current) use of systemic steroids; Z79.84 Long term (current) use of oral hypoglycemic drugs; Z87.01 Personal history of pneumonia (recurrent)
CPT/HCPCS: 36415; 71046; 80048; 80053; 81001; 82947; 83605; 83735; 83880; 84145; 84484; 85025; 87040; 87086; 93005; 93010; 94762; 96365; 96366; 96367; 96376; 99285-25; A9270; G0378; J0456; J0696; J3373; J7030; J7040; J7050; J7512